=== PATIENT | female | born 1975 | race Caucasian/White ===

== ENCOUNTER 2022-08-12 17:56 | Emergency (ER) | payer OTHER, SELFPAY ==
[2022-08-12 18:02] VITALS: BP 141/96; PULSE 82; RESP 16; TEMP 36.7; O2SAT 98; BMI 37.1
[2022-08-12 18:31] VITALS: BP 141/96; PULSE 82; RESP 16; TEMP 36.7; O2SAT 98; BMI 36.9
--- NOTE | 2022-08-12 18:52 | EXP.UTC ---
Discharge Plan Disposition Patient Disposition: Home, Self-Care Condition: Good Referrals Follow up/Referrals: Huan Brown [Primary Care Provider] - See instructions Activity Restrictions/Add. Instructions Additional Instructions/Restrictions: use over the counter hydrocortisone on ear shell/entrance to relieve itching Clinical Impressions Clinical Impression: Ear abrasion Instructions Patient Instructions: DI for Ear Pain-Adult Discharge ED Provider: Simran Soriano [facility] General Stated complaint: Right ear pain Mode of Arrival: Ambulatory Source of Information: Patient Limitations: No Limitations Time Seen by Provider: 08/12/22 18:40 Description of Symptoms (Recalled from Triage Doc. by RN): ear infection HEENT Symptoms (Recalled from RN notes): Yes Resp Symptoms (Recalled from RN notes): No Skin Symptoms (Recalled from RN notes): No MS Symptoms (Recalled from RN notes): No Functional Status (Recalled from RN notes): n/a History of Present Illness Provider Complaint: Pt relates that she wears hearing aids and her ear has been itchy and sore especially the right ear. Related Data Allergies Allergy/AdvReac Type Severity Reaction Status Date / Time No Known Allergies Allergy Verified 08/12/22 18:34 Worker's Comp Is this a Worker's Comp case?: No [facility] Disclaimer: The information contained in this section may have been updated after the patient was seen, as this information can be updated by other users. Social History Smoking Status: Never smoker alcohol intake: never current occupational status: unemployed Travel in the last 8 weeks: None ROS Obtained: Yes All systems reviewed & no additional complaints except as documented Constitutional Constitutional: Reports system reviewed and no additional complaints, except as documented Eyes Eyes: Reports system reviewed and no additional complaints, except as documented ENT Ears, Nose, Mouth, and Throat: Reports system reviewed and no additional complaints, except as documented and Reports otalgia Cardiovascular Cardiovascular: Reports system reviewed and no additional complaints, except as documented Respiratory Respiratory: Reports system reviewed and no additional complaints, except as documented Gastrointestinal Gastrointestingal: Reports system reviewed and no additional complaints, except as documented Genitourinary Female Genitourinary: Reports system reviewed and no additional complaints, except as documented Musculoskeletal Musculoskeletal: Reports system reviewed and no additional complaints, except as documented Integumentary/Breasts Skin/Breast: Reports system reviewed and no additional complaints, except as documented Neurologic Neurologic: Reports system reviewed and no additional complaints, except as documented Endocrine Endocrine: Reports system reviewed and no additional complaints, except as documented Hematologic/Lymphatic Henatologic/Lymphatic: Reports system reviewed and no additional complaints, except as documented Allergic/Immunologic Allergic/Immunologic: Reports system reviewed and no additional complaints, except as documented Physical Exam General General appearance: alert and in no apparent distress Head Head exam: atraumatic and normocephalic Eye Eye exam: Present normal appearance Expanded ENT Exam External ear exam: Present external tenderness TM/Canal exam: Right TM: erythema and canal tenderness Nasal speculum exam: Bilateral: normal Mouth exam: Present normal external inspection Teeth exam: Present normal inspection Throat exam: Present normal inspection Neck Neck exam: Present normal inspection Chest Chest inspection: Present normal inspection Respiratory Respiratory exam: Present normal lung sounds bilaterally and respiratory distress Cardiovascular Cardiovascular exam: Present regular rate and normal rhythm Abdominal Exam Abdominal exam: Present soft Extremities Exam Extremities exam: Pres
[2022-08-12 19:03] VITALS: BP 147/81; PULSE 70; RESP 16; TEMP 36.7; O2SAT 99
== END 2022-08-12 19:01 | disposition home or self-care (01) ==
PROVIDERS: Emergency Provider Nurse Practitioner Family; PCP Family Medicine
DX: S00.411A Abrasion of right ear, initial encounter (principal)
CPT/HCPCS: 99212; G0463

== ENCOUNTER 2023-01-21 09:40 | Emergency (ER) | payer OTHER, SELFPAY ==
[2023-01-21 10:00] VITALS: BP 131/87; PULSE 84; RESP 18; TEMP 37; O2SAT 98; BMI 38.2
--- NOTE | 2023-01-21 10:17 | EXP.UTC ---
Discharge Plan Disposition Patient Disposition: Home, Self-Care Condition: Good Prescriptions Prescriptions: New amoxicillin 875 mg tablet 875 mg PO Q12H Qty: 20 0RF ciprofloxacin-dexamethasone [Ciprodex] 0.3-0.1 % drops,suspension 4 drp otic (ear) Q12H 7 Days Qty: 7.5 0RF Rx Instructions: in left ear as directed No Action celecoxib [Celebrex] 200 mg Capsule 200 mg PO DAILY Referrals Follow up/Referrals: Huan Brown [Primary Care Provider] - See instructions Activity Restrictions/Add. Instructions Additional Instructions/Restrictions: Take medication as prescribed Use drops in left ear as directed FOllow up with your Family Doctor if no improvement or any worsening of symptoms Return if needed Straight to ER if any life threatening symptoms Clinical Impressions Clinical Impression: Otitis media Qualifiers: Otitis media type: unspecified Laterality: bilateral Qualified Code(s): H66.93 - Otitis media, unspecified, bilateral Otitis externa Qualifiers: Otitis externa type: unspecified type Chronicity: unspecified Laterality: left Qualified Code(s): H60.92 - Unspecified otitis externa, left ear Instructions Patient Instructions: Middle Ear Infection, Ear Infections (Alternative Therapy), Otitis Externa, DI for Otitis Externa Discharge ED Provider: Alva Figueroa [facility] General Stated complaint: bilateral ear pain Mode of Arrival: Ambulatory Source of Information: Patient Limitations: No Limitations Time Seen by Provider: 01/21/23 10:17 Description of Symptoms (Recalled from Triage Doc. by RN): PATIENT C/O BILATERAL EAR PAIN, COUGH AND CONGESTION HEENT Symptoms (Recalled from RN notes): Yes Resp Symptoms (Recalled from RN notes): Yes Skin Symptoms (Recalled from RN notes): No MS Symptoms (Recalled from RN notes): No Functional Status (Recalled from RN notes): WNL History of Present Illness Provider Complaint: Patient states that she has been having bilateral ear pain and cough and congestion for several days that has continued to get worse States that today her left ear was hurting worse and pain was going down into her throat so she came in to get it checked Related Data Home Medications Medication Instructions Recorded Confirmed celecoxib 200 mg capsule (Celebrex) 200 mg PO DAILY BACK AND NECK PAIN 01/21/23 01/21/23 Previous Rx's Medication Instructions Recorded amoxicillin 875 mg tablet 875 mg PO Q12H #20 tabs 01/21/23 ciprofloxacin 0.3 %-dexamethasone 4 drp otic (ear) Q12H 7 days #7.5 01/21/23 0.1 % ear drops,suspension mL (Ciprodex) Allergies Allergy/AdvReac Type Severity Reaction Status Date / Time No Known Allergies Allergy Verified 08/12/22 18:34 Worker's Comp Is this a Worker's Comp case?: No [facility] Disclaimer: The information contained in this section may have been updated after the patient was seen, as this information can be updated by other users. Medical History (Updated 01/21/23 @ 10:24 by Alva Figueroa APRN) Urinary tract infection Surgical History (Updated 01/21/23 @ 10:16 by Alem Bonds RN) History of tympanostomy tube placement Social History (Updated 08/12/22 @ 19:00 by Simran Soriano APRN) Smoking Status: Never smoker alcohol intake: never current occupational status: unemployed Travel in the last 8 weeks: None ROS Obtained: Yes All systems reviewed & no additional complaints except as documented and Yes Systems reviewed as appropriate & no additional complaints except as documented Constitutional Constitutional: Reports system reviewed and no additional complaints, except as documented and Reports as per HPI ENT Ears, Nose, Mouth, and Throat: Reports system reviewed and no additional complaints, except as documented, Reports as per HPI, Reports otalgia and Reports nasal congestion Cardiovascular Cardiovascular: Reports system reviewed and no additional complaints, except as documented and Reports
[2023-01-21 10:26] VITALS: BP 131/87; PULSE 84; RESP 18; TEMP 37; O2SAT 98
== END 2023-01-21 10:29 | disposition home or self-care (01) ==
PROVIDERS: Emergency Provider Nurse Practitioner; PCP Family Medicine
DX: H66.93 Otitis media, unspecified, bilateral (principal); H60.92 Unspecified otitis externa, left ear
CPT/HCPCS: 99212; 99214; G0463

== ENCOUNTER 2023-08-12 09:23 | Emergency (ER) | payer OTHER, SELFPAY ==
[2023-08-12 09:30] VITALS: BP 147/86; PULSE 88; RESP 18; TEMP 36.7; O2SAT 96; BMI 34.3
--- NOTE | 2023-08-12 09:41 | EXP.UTC ---
Discharge Plan Disposition Patient Disposition: Home, Self-Care Condition: Good Prescriptions Prescriptions: New azithromycin [Zithromax] 250 mg tablet 250 mg PO UD DOSE PK Qty: 6 0RF Rx Instructions: Take two (2) tablets today, then one (1) tablet days #2 thru #5 benzonatate [benzonatate] 100 mg capsule 100 mg PO TIDP PRN (Reason: Cough) Qty: 30 0RF methylprednisolone 4 mg Tablets,Dose Pack 4 mg PO DIRECTED 6 Days Qty: 21 0RF Rx Instructions: Take 1 pack as directed for 6 days No Action celecoxib [Celebrex] 200 mg Capsule 200 mg PO DAILY Referrals Follow up/Referrals: Huan Brown [Primary Care Provider] - See instructions Activity Restrictions/Add. Instructions Additional Instructions/Restrictions: Drink plenty of fluids. Take tylenol or ibuprofen for pain or fever. Take the medications as directed. Follow up with your regular doctor. GO TO THE ER FOR ANY WORSENING SYMPTOMS Clinical Impressions Clinical Impression: Pharyngitis, Otitis media Instructions Patient Instructions: DI for Pharyngitis/Tonsillopharyngitis -- Adult Discharge ED Provider: Jp Vidal [facility] General Stated complaint: Sore throat, body aches, loss of voice, cough Time Seen by Provider: 08/12/23 09:41 History of Present Illness Provider Complaint: She states that for the past 2 days she has had sore throat, fever, ear pain, and hoarse voice. Related Data Home Medications Medication Instructions Recorded Confirmed celecoxib 200 mg capsule (Celebrex) 200 mg PO DAILY BACK AND NECK PAIN 01/21/23 08/12/23 Previous Rx's Medication Instructions Recorded azithromycin 250 mg tablet 250 mg PO UD DOSE PK #6 tabs 08/12/23 (Zithromax) benzonatate 100 mg capsule 100 mg PO TIDP PRN Cough #30 caps 08/12/23 methylprednisolone 4 mg tablets in 4 mg PO DIRECTED 6 days #21 tabs 08/12/23 a dose pack Allergies Allergy/AdvReac Type Severity Reaction Status Date / Time No Known Allergies Allergy Verified 08/12/23 09:42 [facility] Disclaimer: The information contained in this section may have been updated after the patient was seen, as this information can be updated by other users. Medical History (Updated 08/12/23 @ 10:22 by Jp Vidal APRN) Urinary tract infection Surgical History (Updated 01/21/23 @ 10:16 by Alem Bonds RN) History of tympanostomy tube placement Social History (Updated 08/12/22 @ 19:00 by Simran Soriano APRN) Smoking Status: Never smoker alcohol intake: never current occupational status: unemployed Travel in the last 8 weeks: None ROS Obtained: Yes All systems reviewed & no additional complaints except as documented Constitutional Constitutional: Reports chills and Reports fever(s) Eyes Eyes: Denies eye discharge ENT Ears, Nose, Mouth, and Throat: Reports as per HPI Cardiovascular Cardiovascular: Denies chest pain Respiratory Respiratory: Denies chest congestion and Reports cough Gastrointestinal Gastrointestingal: Reports nausea; Denies abdominal pain, constipation, cramping, diarrhea or vomiting Musculoskeletal Musculoskeletal: Denies arthralgias Integumentary/Breasts Skin/Breast: Denies rash Neurologic Neurologic: Denies paresthesias Physical Exam General General appearance: alert and in no apparent distress Eye Eye exam: Present normal appearance, PERRL and EOMI ENT ENT exam: Present mucous membranes moist and normal external ear exam Expanded ENT Exam External ear exam: Present normal external inspection TM/Canal exam: Bilateral TM: erythema and bulging Nose exam: Absent sinus tenderness Nasal speculum exam: Bilateral: normal Mouth exam: Present normal external inspection; Absent drooling Teeth exam: Present normal inspection Throat exam: Present tonsillar erythema and tonsillomegaly Neck Neck exam: Present normal inspection, full ROM and trachea midline; Absent tenderness, lymphadenopathy or thyromegaly Chest Chest inspection: Present normal inspection and symmetric chest wall rise; Absent tenderness or rash Respiratory Respiratory exam: Present normal lung sounds bilaterally; Absent respiratory distress, wheezes, stridor or accessory muscle use Cardiovascular Cardiovascular exam: Present regular rate, normal rhythm and normal heart sounds Abdominal Exam Abdominal exam: Present soft; Absent distention, tenderness, guarding, rebound or rigidity Extremities Exam Extremities exam: Present normal inspection, full ROM and normal capillary refill; Absent tenderness or calf tenderness Back Exam Back exam: Present normal inspection and full ROM; Absent tenderness Neurological Exam Neurological exam: Present alert and oriented X3 Psychiatric Psychiatric exam: Present normal affect and normal mood Skin Skin exam: Present warm, dry, intact and normal color Lymphatic Lymphatic Findings: no adenopathy Medical Decision Making Medical Records Medical records reviewed: No I reviewed the patient's medical records. Nick Peters Pt receiving controlled substance: No Lab Data Lab results reviewed: Yes I reviewed the patient's lab results.
[2023-08-12 10:05] LABS: UTC Influenza A Antigen Negative (Negative); UTC Influenza B Antigen Negative (Negative); UTC Strep Screen (Rapid) Negative (Negative)
[2023-08-12 10:31] VITALS: BP 147/86; PULSE 88; RESP 18; TEMP 36.7; O2SAT 96
== END 2023-08-12 10:31 | disposition home or self-care (01) ==
PROVIDERS: Emergency Provider Nurse Practitioner Family; PCP Family Medicine
DX: J02.9 Acute pharyngitis, unspecified (principal); H66.93 Otitis media, unspecified, bilateral; R50.9 Fever, unspecified
CPT/HCPCS: 87804; 87880; 99212; 99214; G0463

== ENCOUNTER 2023-10-07 16:11 | Emergency (ER) | payer OTHER, SELFPAY ==
[2023-10-07 16:40] VITALS: BP 140/64; PULSE 85; RESP 18; TEMP 36.7; O2SAT 97; BMI 34.4
--- NOTE | 2023-10-07 17:05 | ED_ITS ---
Discharge Plan Disposition Patient Disposition: Home, Self-Care Condition: Good Prescriptions Prescriptions: New amoxicillin 875 mg tablet 875 mg PO Q12H Qty: 20 0RF methylprednisolone 4 mg Tablets,Dose Pack 4 mg PO DIRECTED 6 Days Qty: 21 0RF Rx Instructions: Take 1 pack as directed for 6 days No Action celecoxib [Celebrex] 200 mg Capsule 200 mg PO DAILY venlafaxine 75 mg capsule,extended release 24hr 75 mg PO DAILY Referrals Follow up/Referrals: Huan Brown [Primary Care Provider] - See instructions Richardson Silver DO [Staff Physician] - See instructions Activity Restrictions/Add. Instructions Additional Instructions/Restrictions: Drink plenty of fluids. Take tylenol or ibuprofen for pain or fever. Take the medications as directed. Follow up with your regular doctor. GO TO THE ER FOR ANY WORSENING SYMPTOMS Throw your tooth brush away and get a new one. Quarantine until you know the results of your covid-19 test. Notify your school or workplace of your results and follow their instructions regarding return to work/school. Rest the extremity, Wear the lia wrap for compression, Elevate the extremity as tolerated while you are resting. Follow up with Dr. Silver (orthopedics). Sometimes there can be fractures that don't show up well on the first set of x-rays. So, you should follow up if you continue to have symptoms. I put in a referral but you need to call his office and schedule an appointment. Clinical Impressions Clinical Impression: Otitis media, Left knee pain Instructions Patient Instructions: DI for Knee Pain, Middle Ear Infection, Methylprednisolone, Amoxicillin Discharge ED Provider: Jp V[facility] General Stated complaint: LT knee swelling , painful, ear ache Mode of Arrival: Ambulatory Source of Information: Patient Limitations: No Limitations Time Seen by Provider: 10/07/23 17:04 Description of Symptoms (Recalled from Triage Doc. by RN): Pt's symptoms are left ear pain, and left knee pain, popping, and swelling. HEENT Symptoms (Recalled from RN notes): Yes Resp Symptoms (Recalled from RN notes): No Skin Symptoms (Recalled from RN notes): No MS Symptoms (Recalled from RN notes): Yes Functional Status (Recalled from RN notes): n/a History of Present Illness Provider Complaint: She states that for the past 3 days she has had left ear pain. She has had sinus congestion and a scratchy throat also. Also, for the past 2 weeks she has had left knee pain and swelling. She denies any injury. Related Data Home Medications Medication Instructions Recorded Confirmed celecoxib 200 mg capsule (Celebrex) 200 mg PO DAILY BACK AND NECK PAIN 01/21/23 10/07/23 venlafaxine 75 mg capsule,extended 75 mg PO DAILY 10/07/23 10/07/23 release 24 hr Previous Rx's Medication Instructions Recorded amoxicillin 875 mg tablet 875 mg PO Q12H #20 tabs 10/07/23 methylprednisolone 4 mg tablets in 4 mg PO DIRECTED 6 days #21 tabs 10/07/23 a dose pack Allergies Allergy/AdvReac Type Severity Reaction Status Date / Time No Known Allergies Allergy Verified 10/07/23 17:03 Worker's Comp Is this a Worker's Comp case?: No [facility] Disclaimer: The information contained in this section may have been updated after the patient was seen, as this information can be updated by other users. Medical History (Updated 10/07/23 @ 17:40 by Jp Vidal APRN) Urinary tract infection Surgical History History of tympanostomy tube placement Social History Smoking Status: Never smoker alcohol intake: never current occupational status: unemployed Travel in the last 8 weeks: None ROS Obtained: Yes All systems reviewed & no additional complaints except as documented Constitutional Constitutional: Denies chills, Reports fever(s) and Reports poor appetite Eyes Eyes: Denies eye discharge ENT Ears, Nose, Mouth, and Throat: Denies ear discharge, Reports otalgia, Denies hearing loss, Denies sinus pain and Reports sore throat Cardiovascular Cardiovascular: Denies chest pain and Denies dyspnea Respiratory Respiratory: Denies chest congestion, Reports cough and Denies dyspnea Gastrointestinal Gastrointestingal: Denies abdominal pain, diarrhea, nausea or vomiting Musculoskeletal Musculoskeletal: Reports as per HPI Integumentary/Breasts Skin/Breast: Denies rash Physical Exam General General appearance: alert and in no apparent distress Head Head exam: atraumatic, normocephalic and normal inspection Eye Eye exam: Present normal appearance; Absent PERRL or EOMI ENT ENT exam: Present mucous membranes moist and normal external ear exam Expanded ENT Exam TM/Canal exam: Bilateral TM: erythema, bulging and effusion Nose exam: Absent sinus tenderness Nasal speculum exam: Bilateral: normal Mouth exam: Present normal external inspection and other; Absent drooling Teeth exam: Present normal inspection Throat exam: Present tonsillar erythema and tonsillomegaly Neck Neck exam: Present normal inspection, full ROM and trachea midline; Absent tenderness, meningismus or lymphadenopathy Chest Chest inspection: Present normal inspection and symmetric chest wall rise; Absent tenderness Respiratory Respiratory exam: Present normal lung sounds bilaterally; Absent respiratory distress, wheezes or stridor Cardiovascular Cardiovascular exam: Present regular rate, normal rhythm and normal heart sounds; Absent tachycardia or irregular rhythm Abdominal Exam Abdominal exam: Present soft and normal bowel sounds; Absent distention, tenderness, guarding, rebound or rigidity Extremities Exam Extremities exam: Present normal capillary refill; Absent joint swelling or calf tenderness Expanded Lower Extremity Exam Left: Hip/Pelvis exam: Present normal inspection and full ROM; Absent tenderness Upper leg exam: Present normal inspection and full ROM; Absent tenderness Knee exam: Present full ROM, tenderness and knee extension intact; Absent swelling, abrasion, laceration, ecchymosis, deformity, crepitus, dislocation, erythema, effusion, anterior drawer sign, posterior draw sign, pain with valgus, laxity with valgus, pain with varus or laxity with varus Lower leg exam: Present normal inspection, full ROM and Achilles tendon intact; Absent tenderness or Homans' sign Ankle exam: Present normal inspection and full ROM; Absent tenderness Foot/toe exam: Present normal inspection and full ROM; Absent tenderness Neurovascular/Tendon exam: Present normal capillary refill and pulse deficit; Absent motor deficit Gait: observed and normal Back Exam Back exam: Present normal inspection and full ROM; Absent tenderness, CVA tenderness (R) or CVA tenderness (L) Neurological Exam Neurological exam: Present alert, oriented X3, CN II-XII intact, normal gait and reflexes normal; Absent motor sensory deficit Psychiatric Psychiatric exam: Present normal affect and normal mood Skin Skin exam: Present warm, dry, intact and normal color Lymphatic Lymphatic Findings: no adenopathy Medical Decision Making Nick Inquiry Pt receiving controlled substance: No Vital Signs: 10/07/23 16:40 Temperature 98.0 F Temperature Source Oral Pulse Rate [Right Radial] 85 Respiratory Rate 18 Blood Pressure [Right Arm] 140/64 Blood Pressure Mean [Right Arm] 89 Blood Pressure Source [Right Arm] Automatic Cuff Blood Pressure Position [Right Arm] Sitting 02 Sat by Pulse Oximetry 97 Oxygen Delivery Method Room Air
[2023-10-07 17:48] VITALS: BP 140/64; PULSE 85; RESP 18; TEMP 36.7; O2SAT 97
== END 2023-10-07 17:48 | disposition home or self-care (01) ==
PROVIDERS: Emergency Provider Nurse Practitioner Family; PCP Family Medicine
DX: H66.93 Otitis media, unspecified, bilateral (principal); M25.562 Pain in left knee; R07.0 Pain in throat; R09.81 Nasal congestion
CPT/HCPCS: 99212; 99214; G0463

== ENCOUNTER 2023-10-23 12:05 | Outpatient (CLI) | payer OTHER, SELFPAY ==
--- NOTE | 2023-10-23 12:08 | XR_ITS ---
FINAL REPORT CLINICAL HISTORY: lt knee pain FINDINGS: Left knee Three views were obtained. There is no acute fracture or dislocation. There are minimal degenerative changes. Small joint effusion is identified. IMPRESSION: Small joint effusion. Reviewed, Interpreted and Dictated by Nicholas Morgan III, MD Transcribed by Monalisa Tapia Authenticated and [facility]
== END 2023-10-23 23:59 | disposition home or self-care (01) ==
LOC: RAD 12:06
PROVIDERS: PCP Family Medicine; Visit Provider Orthopaedic Surgery
DX: M25.562 Pain in left knee (principal)
CPT/HCPCS: 73562

== ENCOUNTER 2023-11-04 17:07 | Emergency (ER) | payer OTHER, SELFPAY ==
[2023-11-04 17:25] VITALS: BP 134/93; PULSE 117; RESP 20; TEMP 36.8; O2SAT 95; BMI 33.9
--- NOTE | 2023-11-04 17:31 | EXP.UTC ---
Discharge Plan Disposition Patient Disposition: Home, Self-Care Condition: Good Prescriptions Prescriptions: New yxohhaot-izpzoylpe-RF 3.5-10,000-1 mg/mL-unit/mL-% solution 4 drp Ear-Left Q8H 7 Days Qty: 10 0RF amoxicillin 875 mg tablet 875 mg PO Q12H Qty: 20 0RF No Action celecoxib [Celebrex] 200 mg Capsule 200 mg PO DAILY venlafaxine 75 mg capsule,extended release 24hr 75 mg PO DAILY Referrals Follow up/Referrals: Huan Brown [Primary Care Provider] - See instructions Activity Restrictions/Add. Instructions Additional Instructions/Restrictions: Drink plenty of fluids. Take tylenol or ibuprofen for pain or fever. Take the medications as directed. Follow up with your regular doctor. GO TO THE ER FOR ANY WORSENING SYMPTOMS Clinical Impressions Clinical Impression: Otitis media Instructions Patient Instructions: How to Instill Ear Drops, Middle Ear Infection Discharge ED Provider: Jp Vidal [facility] General Stated complaint: LT ear pain Time Seen by Provider: 11/04/23 17:29 Related Data Home Medications Medication Instructions Recorded Confirmed celecoxib 200 mg capsule (Celebrex) 200 mg PO DAILY BACK AND NECK PAIN 01/21/23 11/04/23 venlafaxine 75 mg capsule,extended 75 mg PO DAILY 10/07/23 11/04/23 release 24 hr Previous Rx's Medication Instructions Recorded amoxicillin 875 mg tablet 875 mg PO Q12H #20 tabs 11/04/23 ennzquyh-mnnutflvk-tkpgrizpy 3.5 4 drp Ear-Left Q8H 7 days #10 mL 11/04/23 mg/mL-10,000 unit/mL-1 % ear solution Allergies Allergy/AdvReac Type Severity Reaction Status Date / Time No Known Allergies Allergy Verified 10/23/23 14:03 [facility] Disclaimer: The information contained in this section may have been updated after the patient was seen, as this information can be updated by other users. Medical History (Updated 11/04/23 @ 18:24 by Jp Vidal APRN) Depression Anxiety Urinary tract infection Surgical History History of tympanostomy tube placement Social History Smoking Status: Never smoker alcohol intake: never current occupational status: unemployed Travel in the last 8 weeks: None ROS Obtained: Yes All systems reviewed & no additional complaints except as documented Constitutional Constitutional: Denies chills and Denies fever(s) Eyes Eyes: Denies eye discharge ENT Ears, Nose, Mouth, and Throat: Denies ear discharge, Reports otalgia, Denies hearing loss, Denies sinus pain and Reports sore throat Cardiovascular Cardiovascular: Denies chest pain and Denies dyspnea Respiratory Respiratory: Denies chest congestion, Reports cough and Denies dyspnea Gastrointestinal Gastrointestingal: Denies abdominal pain, diarrhea, nausea or vomiting Musculoskeletal Musculoskeletal: Denies arthralgias Integumentary/Breasts Skin/Breast: Denies rash Physical Exam General General appearance: alert and in no apparent distress Head Head exam: atraumatic, normocephalic and normal inspection Eye Eye exam: Present normal appearance; Absent PERRL or EOMI ENT ENT exam: Present mucous membranes moist and normal external ear exam Expanded ENT Exam TM/Canal exam: Bilateral TM: erythema, bulging and effusion Nose exam: Absent sinus tenderness Nasal speculum exam: Bilateral: normal Mouth exam: Present normal external inspection and other; Absent drooling Teeth exam: Present normal inspection Throat exam: Present tonsillar erythema and tonsillomegaly Neck Neck exam: Present normal inspection, full ROM and trachea midline; Absent tenderness, meningismus or lymphadenopathy Chest Chest inspection: Present normal inspection and symmetric chest wall rise; Absent tenderness Respiratory Respiratory exam: Present normal lung sounds bilaterally; Absent respiratory distress, wheezes or stridor Cardiovascular Cardiovascular exam: Present regular rate, normal rhythm and normal heart sounds; Absent tachycardia or irregular rhythm Abdominal Exam Abdominal exam: Present soft and normal bowel sounds; Absent distention, tenderness, guarding, rebound or rigidity Extremities Exam Extremities exam: Present normal inspection and normal capillary refill; Absent tenderness, joint swelling or calf tenderness Back Exam Back exam: Present normal inspection and full ROM; Absent tenderness, CVA tenderness (R) or CVA tenderness (L) Neurological Exam Neurological exam: Present alert, oriented X3, CN II-XII intact, normal gait and reflexes normal; Absent motor sensory deficit Psychiatric Psychiatric exam: Present normal affect and normal mood Skin Skin exam: Present warm, dry, intact and normal color Lymphatic Lymphatic Findings: no adenopathy Medical Decision Making Medical Records Medical records reviewed: No I reviewed the patient's medical records. Nick Inquiry Pt receiving controlled substance: No
[2023-11-04 18:24] VITALS: BP 134/93; PULSE 117; RESP 20; TEMP 36.8; O2SAT 95
== END 2023-11-04 18:33 | disposition home or self-care (01) ==
PROVIDERS: Emergency Provider Nurse Practitioner Family; PCP Family Medicine
DX: H66.92 Otitis media, unspecified, left ear (principal); H92.02 Otalgia, left ear
CPT/HCPCS: 99212; 99214; G0463

== ENCOUNTER 2023-11-17 18:33 | Emergency (ER) | payer OTHER, SELFPAY ==
[2023-11-17 18:40] VITALS: BP 163/95; PULSE 99; RESP 18; TEMP 36.6; O2SAT 97; BMI 33.4
--- NOTE | 2023-11-17 19:18 | ED_ITS ---
Discharge Plan Disposition Patient Disposition: Home, Self-Care Condition: Good Prescriptions Prescriptions: New ciprofloxacin-dexamethasone 0.3-0.1 % Drops,Suspension 2 drp OTIC (EAR) BID 7 Days Qty: 1 0RF No Action celecoxib [Celebrex] 200 mg Capsule 200 mg PO DAILY venlafaxine 75 mg capsule,extended release 24hr 75 mg PO DAILY ndpuvywy-xwmvoyvvh-WT 3.5-10,000-1 mg/mL-unit/mL-% solution 4 drp Ear-Left Q8H 7 Days Qty: 10 0RF amoxicillin 875 mg tablet 875 mg PO Q12H Qty: 20 0RF Referrals Follow up/Referrals: Marco Antonio Prince MD [Physician] - See instructions Huan Brown [Primary Care Provider] - See instructions Activity Restrictions/Add. Instructions Additional Instructions/Restrictions: Take tylenol or ibuprofen for pain or fever. Use the ear drops as directed. Follow up with your regular doctor. Follow up with ENT. I put in a referral to Dr. Prince. His office phone number will be on this paperwork. GO TO THE ER FOR ANY WORSENING SYMPTOMS Clinical Impressions Clinical Impression: Perforated left tympanic membrane on examination Instructions Patient Instructions: How to Instill Ear Drops, Ruptured Eardrum Discharge ED Provider: Jp Vidal [facility] General Stated complaint: LT ear bleeding Mode of Arrival: Ambulatory Source of Information: Patient Limitations: No Limitations Time Seen by Provider: 11/17/23 19:16 Description of Symptoms (Recalled from Triage Doc. by RN): Pt's symptoms are left ear pain and bleeding. HEENT Symptoms (Recalled from RN notes): Yes Resp Symptoms (Recalled from RN notes): No Skin Symptoms (Recalled from RN notes): No MS Symptoms (Recalled from RN notes): No Functional Status (Recalled from RN notes): n/a Related Data Home Medications Medication Instructions Recorded Confirmed celecoxib 200 mg capsule (Celebrex) 200 mg PO DAILY BACK AND NECK PAIN 01/21/23 11/17/23 venlafaxine 75 mg capsule,extended 75 mg PO DAILY 10/07/23 11/17/23 release 24 hr Previous Rx's Medication Instructions Recorded amoxicillin 875 mg tablet 875 mg PO Q12H #20 tabs 11/04/23 uqdvbncf-tlupewjnm-wacthaxsh 3.5 4 drp Ear-Left Q8H 7 days #10 mL 11/04/23 mg/mL-10,000 unit/mL-1 % ear solution ciprofloxacin 0.3 %-dexamethasone 2 drp otic (ear) BID 7 days #1 ea 11/17/23 0.1 % ear drops,suspension Allergies Allergy/AdvReac Type Severity Reaction Status Date / Time No Known Allergies Allergy Verified 11/17/23 18:53 Worker's Comp Is this a Worker's Comp case?: No [facility] Disclaimer: The information contained in this section may have been updated after the patient was seen, as this information can be updated by other users. Medical History (Updated 11/17/23 @ 19:45 by Jp Vidal APRN) Depression Anxiety Urinary tract infection Surgical History History of tympanostomy tube placement Social History Smoking Status: Never smoker alcohol intake: never current occupational status: unemployed Travel in the last 8 weeks: None ROS Obtained: Yes All systems reviewed & no additional complaints except as documented Constitutional Constitutional: Denies chills and Denies fever(s) Eyes Eyes: Denies eye discharge ENT Ears, Nose, Mouth, and Throat: Denies dizziness, Denies otalgia and Denies sore throat Cardiovascular Cardiovascular: Denies chest pain Respiratory Respiratory: Denies shortness of breath, Denies chest congestion, Denies cough, Denies stridor and Denies wheezing Gastrointestinal Gastrointestingal: Denies nausea or vomiting Musculoskeletal Musculoskeletal: Reports system reviewed and no additional complaints, except as documented and Denies arthralgias Integumentary/Breasts Skin/Breast: Denies rash Neurologic Neurologic: Denies dizziness and Denies paresthesias Allergic/Immunologic Allergic/Immunologic: Denies wheezing Physical Exam General General appearance: alert and in no apparent distress Head Head exam: atraumatic, normocephalic and normal inspection Eye Eye exam: Present normal appearance, PERRL and EOMI ENT ENT exam: Present normal exam, normal oropharynx, mucous membranes moist, TM's normal bilaterally and normal external ear exam Neck Neck exam: Present normal inspection, full ROM and trachea midline; Absent meningismus or lymphadenopathy Chest Chest inspection: Present normal inspection and symmetric chest wall rise; Absent tenderness Respiratory Respiratory exam: Present normal lung sounds bilaterally; Absent respiratory distress Cardiovascular Cardiovascular exam: Present regular rate and normal rhythm; Absent JVD Abdominal Exam Abdominal exam: Present soft and normal bowel sounds; Absent distention, tenderness or guarding Extremities Exam Extremities exam: Present normal inspection, full ROM and normal capillary refill; Absent calf tenderness Back Exam Back exam: Present normal inspection; Absent tenderness Neurological Exam Neurological exam: Present alert and oriented X3 Psychiatric Psychiatric exam: Present normal affect and normal mood Skin Skin exam: Present warm, dry, intact and normal color Lymphatic Lymphatic Findings: no adenopathy Medical Decision Making Medical Records Medical records reviewed: No I reviewed the patient's medical records. Nick Inquiry Pt receiving controlled substance: No Vital Signs: 11/17/23 18:40 Temperature 97.9 F Temperature Source Oral Pulse Rate [Right Radial] 99 H Respiratory Rate 18 Blood Pressure [Right Arm] 163/95 H Blood Pressure Mean [Right Arm] 117 Blood Pressure Source [Right Arm] Automatic Cuff Blood Pressure Position [Right Arm] Sitting 02 Sat by Pulse Oximetry 97 Oxygen Delivery Method Room Air
[2023-11-17 20:23] VITALS: BP 163/95; PULSE 99; RESP 18; TEMP 36.6; O2SAT 97
== END 2023-11-17 20:22 | disposition home or self-care (01) ==
PROVIDERS: Emergency Provider Nurse Practitioner Family; PCP Family Medicine
DX: H72.92 Unspecified perforation of tympanic membrane, left ear (principal); H92.02 Otalgia, left ear
CPT/HCPCS: 99212; 99214; G0463

== ENCOUNTER 2023-12-06 11:43 | Emergency (ER) | payer OTHER, SELFPAY ==
[2023-12-06 11:55] VITALS: BP 140/89; PULSE 88; RESP 20; TEMP 36.9; O2SAT 97; BMI 35.5
--- NOTE | 2023-12-06 11:59 | EXP.UTC ---
Discharge Plan Disposition Patient Disposition: Home, Self-Care Condition: Good Prescriptions Prescriptions: No Action amoxicillin 500 mg capsule 500 mg PO BID 10 Days Qty: 20 0RF methylprednisolone 4 mg tablets,dose pack See Rx Instructions PO PER PKG DIR Qty: 21 0RF Rx Instructions: PO PER PKG DIR celecoxib [Celebrex] 200 mg Capsule 200 mg PO DAILY venlafaxine 75 mg capsule,extended release 24hr 75 mg PO DAILY Referrals Follow up/Referrals: Richardson Silver DO [Staff Physician] - See instructions Huan Brown [Primary Care Provider] - See instructions Activity Restrictions/Add. Instructions Additional Instructions/Restrictions: Rest the extremity, Elevate the extremity as tolerated while you are resting. Take ibuprofen for pain (if you can take this). Follow up with Dr. Silver (orthopedics). I put in a referral but you need to call his office and schedule an appointment. Follow up with your regular doctor. GO TO THE ER FOR ANY WORSENING SYMPTOMS Clinical Impressions Clinical Impression: Left knee sprain, Left knee pain Instructions Patient Instructions: Knee Sprain, DI for Knee Sprain, How to Use a Knee Immobilizer Discharge ED Provider: Jp Vidal [facility] General Stated complaint: twisted her knee has pain Time Seen by Provider: 12/06/23 11:59 History of Present Illness Provider Complaint: She states that she twisted her left knee 2 days ago while picking up her grand child. She has had left knee pain that is worse with walking since then. She denies any other injury. Related Data Home Medications Medication Instructions Recorded Confirmed celecoxib 200 mg capsule (Celebrex) 200 mg PO DAILY BACK AND NECK PAIN 01/21/23 12/06/23 venlafaxine 75 mg capsule,extended 75 mg PO DAILY 10/07/23 12/06/23 release 24 hr Previous Rx's Medication Instructions Recorded amoxicillin 500 mg capsule 500 mg PO BID 10 days #20 caps 12/06/23 methylprednisolone 4 mg tablets in See Rx Instructions PO PER PKG DIR 12/06/23 a dose pack #21 tabs Allergies Allergy/AdvReac Type Severity Reaction Status Date / Time No Known Allergies Allergy Verified 12/06/23 14:10 [facility] Disclaimer: The information contained in this section may have been updated after the patient was seen, as this information can be updated by other users. Medical History (Updated 12/06/23 @ 14:29 by Celia Stein APRN) Acute left otitis media Depression Anxiety Urinary tract infection Surgical History History of tympanostomy tube placement Social History Smoking Status: Never smoker alcohol intake: never current occupational status: unemployed Travel in the last 8 weeks: None ROS Obtained: Yes All systems reviewed & no additional complaints except as documented Constitutional Constitutional: Denies chills and Denies fever(s) Eyes Eyes: Denies eye discharge ENT Ears, Nose, Mouth, and Throat: Denies dizziness, Denies otalgia and Denies sore throat Cardiovascular Cardiovascular: Denies chest pain Respiratory Respiratory: Denies shortness of breath, Denies chest congestion, Denies cough, Denies stridor and Denies wheezing Gastrointestinal Gastrointestingal: Denies nausea or vomiting Musculoskeletal Musculoskeletal: Reports system reviewed and no additional complaints, except as documented and Denies arthralgias Integumentary/Breasts Skin/Breast: Denies rash Neurologic Neurologic: Denies dizziness and Denies paresthesias Allergic/Immunologic Allergic/Immunologic: Denies wheezing Physical Exam General General appearance: alert and in no apparent distress Head Head exam: atraumatic, normocephalic and normal inspection Eye Eye exam: Present normal appearance, PERRL and EOMI ENT ENT exam: Present normal exam, normal oropharynx, mucous membranes moist, TM's normal bilaterally and normal external ear exam Neck Neck exam: Present normal inspection, full ROM and trachea midline; Absent meningismus or lymphadenopathy Chest Chest inspection: Present normal inspection and symmetric chest wall rise; Absent tenderness Respiratory Respiratory exam: Present normal lung sounds bilaterally; Absent respiratory distress Cardiovascular Cardiovascular exam: Present regular rate and normal rhythm; Absent JVD Abdominal Exam Abdominal exam: Present soft and normal bowel sounds; Absent distention, tenderness or guarding Extremities Exam Extremities exam: Present normal capillary refill; Absent calf tenderness Expanded Lower Extremity Exam Left: Hip/Pelvis exam: Present normal inspection and full ROM; Absent tenderness Upper leg exam: Present normal inspection and full ROM; Absent tenderness, swelling, abrasion, laceration, ecchymosis, deformity, crepitus, dislocation or erythema Knee exam: Present full ROM, tenderness and knee extension intact; Absent swelling, abrasion, laceration, ecchymosis, deformity, crepitus, dislocation, erythema, effusion, anterior drawer sign, posterior draw sign, pain with valgus, laxity with valgus, pain with varus or laxity with varus Lower leg exam: Present normal inspection, full ROM and Achilles tendon intact; Absent tenderness or Homans' sign Ankle exam: Present normal inspection and full ROM; Absent tenderness Foot/toe exam: Present normal inspection and full ROM; Absent tenderness Neurovascular/Tendon exam: Present normal capillary refill, normal 2-point discrimination and normal fine/light touch; Absent pulse deficit, motor deficit, sensory deficit, tendon deficit, extremity cold to touch or pallor Gait: observed and normal Back Exam Back exam: Present normal inspection; Absent tenderness Neurological Exam Neurological exam: Present alert and oriented X3 Psychiatric Psychiatric exam: Present normal affect and normal mood Skin Skin exam: Present warm, dry, intact and normal color Lymphatic Lymphatic Findings: no adenopathy Medical Decision Making Medical Records Medical records reviewed: No I reviewed the patient's medical records. Nick Inquiry Pt receiving controlled substance: No
--- NOTE | 2023-12-06 12:01 | XR_ITS ---
FINAL REPORT CLINICAL HISTORY: pain FINDINGS: LEFT KNEE 3 views of the left knee were obtained. There is no acute fracture or dislocation. There are mild degenerative changes. Visualized joint spaces are normally aligned. Soft tissues are unremarkable. IMPRESSION: No acute bony abnormality. Reviewed, Interpreted and Dictated by Jeanette Torres MD Transcribed by Eloisa Streeter Authenticated and [facility]
[2023-12-06 13:02] VITALS: BP 140/89; PULSE 88; RESP 20; TEMP 36.9; O2SAT 97
== END 2023-12-06 13:09 | disposition home or self-care (01) ==
PROVIDERS: Emergency Provider Nurse Practitioner Family; PCP Family Medicine
DX: S83.92XA Sprain of unspecified site of left knee, initial encounter (principal); M25.562 Pain in left knee; X50.1XXA Overexertion from prolonged static or awkward postures, initial encounter
CPT/HCPCS: 73562; 99212; 99213; G0463

== ENCOUNTER 2024-01-07 13:39 | Outpatient (CLI) | payer OTHER, SELFPAY | END 2024-01-07 23:59 | disposition home or self-care (01) | LOC: LAB.DROPOF 01-09 13:40 | PROVIDERS: PCP Family Medicine; Visit Provider Nurse Practitioner | DX: H66.92 Otitis media, unspecified, left ear (principal); Z72.0 Tobacco use | CPT/HCPCS: 87070; 87077; 87186 ==

== ENCOUNTER 2024-05-14 10:32 | Emergency (ER) | payer OTHER, SELFPAY ==
[2024-05-14 10:45] VITALS: BP 139/89; PULSE 101; RESP 19; TEMP 36.8; O2SAT 98; BMI 37.8
--- NOTE | 2024-05-14 10:56 | EXP.UTC ---
Discharge Plan Disposition Patient Disposition: Home, Self-Care Condition: Good Prescriptions Prescriptions: New promethazine-DM 6.25-15 mg/5 mL syrup 5 ml PO Q6H PRN (Reason: cough) Qty: 118 0RF methylprednisolone [Medrol (Edison)] 4 mg tablets,dose pack See Rx Instructions .Route .COMPLEX 6 Days Qty: 21 0RF Rx Instructions: taper pack; guaifenesin [Mucinex] 600 mg tablet extended release 12hr 1,200 mg PO BID PRN (Reason: cough) Qty: 20 0RF albuterol sulfate 90 mcg/actuation HFA aerosol inhaler 2 puff inhalation Q6H PRN (Reason: shortness of breath or wheezing) Qty: 8.5 0RF azithromycin [Zithromax Z-Edison] 250 mg tablet See Rx Instructions .ROUTE .COMPLEX 5 Days Qty: 6 0RF Rx Instructions: For 250 mg dose pack: take 500 mg today (day 1), then 250 mg for 4 days (days 2-5) No Action ibuprofen 800 mg Tablet 800 mg PO Q8H PRN (Reason: Pain) methocarbamol 750 mg Tablet 750 mg PO HS venlafaxine 75 mg capsule,extended release 24hr 75 mg PO DAILY Referrals Follow up/Referrals: Bhavya Melendrez MD [Primary Care Provider] - See instructions Activity Restrictions/Add. Instructions Additional Instructions/Restrictions: Start antibiotic today. Be sure to complete entire prescription even if feeling better Monitor temp. Tylenol every 4 hours as needed and / or ibuprofen every 6 hours as needed ( As long as your primary care physician has told you that it ok to take both. For fever/aches/pains ER if no less than 101 despite Tylenol or Motrin Humidifier/vaporizer or hot steamy shower Inhaler every 4-6 hours as needed like we discussed. If unsure how to use it, ask pharmacist to demonstrate how. Should help open airways and improve cough, wheezing, and shortness of breath Mucinex during the day for your cough and cough suppressant only at night. Be sure to drink lots of water. *Promethazine DM cough syrup will cause drowsiness. Use only at night. No driving, operating machinery or caring for small children after taking it Start steroid today. Helps with inflammation therefore, cough and wheezing. Follow directions on the package. Reviewed side effects. Patient reports taking them before. Follow up IMMEDIATELY for new or worsening of symptoms OR no noticeable improvement over the next 48-72 hours. 911 immediately for any life threatening symptoms such as chest pain or difficulty breathing Clinical Impressions Clinical Impression: Bronchitis Sinusitis Qualifiers: Sinusitis location: unspecified location Chronicity: unspecified Qualified Code(s): J32.9 - Chronic sinusitis, unspecified Instructions Patient Instructions: Acute Bronchitis, DI for Sinusitis Print Language Print Language: Turkmen Discharge ED Provider: Alva Figueroa [facility] General Stated complaint: chest congestion, cough Mode of Arrival: Ambulatory Source of Information: Patient Limitations: No Limitations Time Seen by Provider: 05/14/24 10:56 Description of Symptoms (Recalled from Triage Doc. by RN): PATIENT C/O COUGH, CONGESTION, HEADACHE, BACK PAIN, AND EAR PAIN X 2 WEEKS HEENT Symptoms (Recalled from RN notes): Yes Resp Symptoms (Recalled from RN notes): Yes Skin Symptoms (Recalled from RN notes): No MS Symptoms (Recalled from RN notes): No Functional Status (Recalled from RN notes): WNL History of Present Illness Provider Complaint: Patient states that she has been having cough, sinus congestion and drainage, pain in her ears pain in ribs from coughing and feeling full and pain in both ears States that she was seen in the ED about a week and half ago and was dx with bronchitis and states that she finised the steriods they give her and they didnt help States today she was still not feeling any better and felt like her sinus pressure and cough was getting worse so she came back in Related Data Home Medications ?Medication ?Instructions ?Recorded ?Confirmed venlafaxine 75 mg capsule,extended 75 mg PO DAILY 10/07/23 05/14/24 release 24 hr ibuprofen 800 mg tablet 800 mg PO Q8H PRN Pain 05/14/24 05/14/24 methocarbamol 750 mg tablet 750 mg PO HS 05/14/24 05/14/24 Previous Rx's ?Medication ?Instructions ?Recorded albuterol sulfate 90 mcg/actuation 2 puff inhalation Q6H PRN 05/14/24 aerosol inhaler shortness of breath or wheezing #8.5 grams azithromycin 250 mg tablet See Rx Instructions PO .COMPLEX 5 05/14/24 (Zithromax Z-Edison) days #6 tabs guaifenesin 600 mg tablet, 1,200 mg (2 x 600 mg) PO BID PRN 05/14/24 extended release 12 hr (Mucinex) cough #20 tabs methylprednisolone 4 mg tablets in See Rx Instructions .Route 05/14/24 a dose pack (Medrol (Edison)) .COMPLEX 6 days #21 tabs promethazine-DM 6.25 mg-15 mg/5 mL 5 ml PO Q6H PRN cough #118 mL 05/14/24 oral syrup Allergies Allergy/AdvReac Type Severity Reaction Status Date / Time No Known Allergies Allergy Verified 02/07/24 09:12 Worker's Comp Is this a Worker's Comp case?: No [facility] Disclaimer: The information contained in this section may have been updated after the patient was seen, as this information can be updated by other users. Medical History (Updated 05/14/24 @ 11:19 by Alva Figueroa APRN) Impacted cerumen, left ear Acute left otitis media Depression Anxiety Urinary tract infection Surgical History (Updated 02/07/24 @ 09:18 by Melissa Farias, LIZBETH) History of ear surgery History of tympanostomy tube placement Social History (Updated 02/07/24 @ 09:18 by Melissa Farias, LIZBETH) Smoking Status: Current some day smoker tobacco type: cigarettes packs per day: 1 alcohol intake: never current occupational status: unemployed ROS Obtained: Yes All systems reviewed & no additional complaints except as documented and Yes Systems reviewed as appropriate & no additional complaints except as documented Constitutional Constitutional: Reports system reviewed and no additional complaints, except as documented, Reports as per HPI and Reports headache(s) ENT Ears, Nose, Mouth, and Throat: Reports system reviewed and no additional complaints, except as documented, Reports as per HPI, Reports otalgia, Reports headache(s), Reports sinus pain and Reports sinus pressure Cardiovascular Cardiovascular: Reports system reviewed and no additional complaints, except as documented and Reports as per HPI Respiratory Respiratory: Reports system reviewed and no additional complaints, except as documented, Reports as per HPI, Reports chest congestion and Reports cough Gastrointestinal Gastrointestingal: Reports system reviewed and no additional complaints, except as documented and as per HPI Neurologic Neurologic: Reports headache(s) Physical Exam General General appearance: alert and in no apparent distress ENT ENT exam: Present mucous membranes moist Expanded ENT Exam Nose exam: Present sinus tenderness Throat exam: Present other (PND noted with pharyngeal erythema ) Chest Chest inspection: Present normal inspection and symmetric chest wall rise Respiratory Respiratory exam: Present normal lung sounds bilaterally; Absent respiratory distress or wheezes Cardiovascular Cardiovascular exam: Present regular rate, normal rhythm and normal heart sounds Neurological Exam Neurological exam: Present alert, oriented X3 and normal gait Medical Decision Making Medical Records Screening: Per USPSTF and CDC recommendations, given the prevalence of disease in our region, it is our hospital?s policy to screen for HIV and viral Hepatitis for all patients aged 18 and over and those with ongoing risk factors. Nick Inquiry Pt receiving controlled substance: No Nick was queried for this patient: No Vital Signs: 05/14/24 10:45 Temperature 98.3 F Temperature Source Oral Pulse Rate [Left Brachial] 101 H Respiratory Rate 19 Blood Pressure [Left Arm] 139/89 Blood Pressure Mean [Left Arm] 105 Blood Pressure Source [Left Arm] Automatic Cuff Blood Pressure Position [Left Arm] Sitting 02 Sat by Pulse Oximetry 98 Medical Decision Narrative: discussed CXR patient declined just had one less than 2 weeks ago
[2024-05-14 11:21] VITALS: BP 108/65; PULSE 79; RESP 18; TEMP 36.9; O2SAT 99
== END 2024-05-14 11:25 | disposition home or self-care (01) ==
PROVIDERS: Emergency Provider Nurse Practitioner; PCP Family Medicine
DX: J20.9 Acute bronchitis, unspecified (principal); J32.9 Chronic sinusitis, unspecified; R05.9 Cough, unspecified; R09.81 Nasal congestion; H92.09 Otalgia, unspecified ear; R07.81 Pleurodynia; R51.9 Headache, unspecified
CPT/HCPCS: 99212; G0381

== ENCOUNTER 2025-02-10 12:24 | Outpatient (CLI) | payer OTHER, SELFPAY ==
--- OUTSIDE RECORDS SUMMARY | 2012-09-04 11:30 | XMS_ITS | Continuity of Care Document ---
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 Phone Severiano CALLAWAY, Travon Unavailable Unavailable Allergies, Adverse Reactions, Alerts Substance Reaction Status Criticality No Known allergies Medications Medication Instructions Dosage Effective Dates (start - stop) Status Comments LEXAPRO (unknown strength) Not Available - Active TEGRETOL (unknown strength) Not Available - Active Procedures Procedure Date EYE EXAM, NEW PATIENT Advance Directives Directive Yes / No Effective Date File Name No Information Encounters Encounter Description Practice Location Reason(s) For Visit Diagnoses Date Provider Providers Copied on Encounter [facility], Corporate [id number] [place], [place], [id number], tel:[phone] [facility] 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 [address] [place], [place], [id number], [place]. tel:[phone] Family History Family Member Type Diagnosis Age At Onset Father Problem (finding) diabetes melli tus in first degree relative Mother Problem (finding) glaucoma Grandmother (m) Problem (finding) Cancer Payers Payer name Insurance type Covered libertarian ID Authoriza tijohnathon(s) [facility] CI [id number] Social History Type Description Quantity Date Captured Comments Alcohol Use Details No Caffeine Use Details Unknown Tobacco Use Status No Information Smoking Status Former smoker Smoking Tobacco Use Details Cigarette: Years Used 8 Cigarette: No Details Available Sex Female Chief Complaint And Reason For Visit No Information Reason For Referral Reason For Referral No Information History Of Present Illness Encounter Date Complaint History Of Prese nt Illness No Information Functional Status Date Functional Assessmen t No Information Instructions Date Instruction Additional Infor tono - Return in [address] العلي for complete exam. 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 No acute intraocular pathology. - Discussed diagnosis in detail with patient.Self limited - improving.Educational materials provided: to patient/caregiver. 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
--- OUTSIDE RECORDS SUMMARY | 2024-12-13 16:42 | XMS_ITS | Encounter Summary ---
Author Organization [facility] Address [address] [place] [address] Care Team Providers Care Dean Of Boys Name Role Phone Alfredo Marc PA-C Primary Care Provider Reason for Referral * MRI/CAT/PET Scan (Routine) - Closed Specialty Diagnoses / Procedures Referred By El connell Referred To Contact Radiology Diagnoses Postlaminectomy syndrome, not elsewhere classified Procedures MRI Thoracic Spine Without Contrast Garry aSunders MD [address] [place] [address] Phone: tel: fax: Referral ID Status Reason Start Date Expiration Date Visits Re quested Visits Authorized Closed 11/28/2024 02/27/2026 1 1 Reason for Visit * MRI/CAT/PET Scan (Routine) - Closed Specialty Diagnoses / Procedures Referred By El connell Referred To Contact Radiology Diagnoses Postlaminectomy syndrome, not elsewhere classified Procedures MRI Thoracic Spine Without Contrast Garry Saunders MD [address] [place] [id number] Phone: tel: fax: Referral ID Status Reason Start Date Expiration Date Visits Re quested Visits Authorized Closed 11/28/2024 02/27/2026 1 1 Encounter Details Date Type Department Care Team (Late st Contact Info) Description 12/13/2024 4:42 PM EDT - 12/13/2024 11:59 PM EDT Hospital Encounter [facility] [place] [address] [place] [address] Garry Saunders MD [address] [facility] [facility] [place] [address] Postlaminectomy syndrome, not elsewhere classified Discharge Disposition: Home or Self Care Social History Tobacco Use Types Packs/Day Years Used Date Smoking Tobacco: Every Day Cigarettes 1 25 Passive Smoke Exposure: Current Smokeless Tobacco: Never Alcohol Use Standard Drinks/Week Comments No 0 (1 standard drink = 0.6 oz pur e alcohol) PHQ-2 Answer Date Recorded Retired PHQ-9: Brief Depression Severity Measure Score 1 11/28/2022 Abuse Screen Answer Date Recorded Feels Unsafe at Home or Work/School no 07/09/2024 Feels Threatened by Someone no 06/19 Does Anyone Try to Keep You From Having Contact with Others or Doing Things Outside Your Home? no 07/09/2024 Physical Signs of Abuse Present no 07/09/2024 Housing Stability Answer Date Recorded Current Living Arrangements home 06/19 Potentially Unsafe Housing Conditions Not on mickey e 07/09/2024 Disabilities Answer Date Recorded Difficulty Concentrating, Remembering or Making Decisions no 07/09/2024 Difficulty Managing Errands Independently no 07/09/2024 Education Answer Date Recorded Help with school or training? Not on file Preferred Language Cook Islander 07/03/2024 PHQ-2 Answer Date Recorded Patient Health Questionnaire-9 Score 10 11/28/2024 Comments No Sex and Gender Information Value Date Recorded Sex Assigned at Not on file Legal Sex Female 12:03 PM EDT Gender Identity Not on file Sexual Orientation Not on file documented as of this encounter Medications at Time of Discharge amoxicillin (AMOXIL) 875 MG tabletIndications :Acute left otitis media Take 1 tablet by mouth 2 (Two) Times a Day. 20 tablet 11/28/2024 buPROPion XL (Wellbutrin XL) 150 MG 24 hr tabletIndications :Anxiety and depression Take 1 tablet by mouth Daily. 90 tablet 1 11/28/2024 celecoxib (CeleBREX) 200 MG capsuleIndication s:Acute bilateral low back pain without sciatica Take 1 capsule by mouth 2 (Two) Times a Day. 180 capsule 12/02/2024 cyclobenzaprine (FLEXERIL) 10 MG tabletIndications :Chronic midline low back pain with left-sided sciatica 1 PO QHS 30 tablet 2 11/28/2024 Elderberry-Vitami n C-Zinc (ELDERBERRY IMMUNE HEALTH GUMMY PO) Take 3 tablets by mouth Daily. 3 GUMMIES A DAY ibuprofen (ADVIL,MOTRIN) 800 MG tablet Take 1 tablet by mouth Every 6 (Six) Hours As Needed for Mild Pain. methocarbamol (ROBAXIN) 500 MG tablet Take 1.5 tablets by mouth 2 (Two) Times a Day. methocarbamol (ROBAXIN) 750 MG tablet Take 1 tablet by mouth 4 (Four) Times a Day As Needed for Muscle Spasms. venlafaxine XR (EFFEXOR-XR) 150 MG 24 hr capsuleIndication s:Perimenopausal Take 1 capsule by mouth Daily. 90 capsule 12/02/2024 hydrOXYzine (ATARAX) 50 MG tabletIndications :Insomnia, unspecified type 1/2-1 po nightly PRN insomnia 20 tablet 1 11/28/2024 documented as of this encounter Plan of Treatment Not on file documented as of this encounter Procedures Procedure Name Priority Date/Time Associated Diagnosis Comments MRI THORACIC SPINE WO CONTRAST Routine 12/13/2024 5:16 PM EDT Postlaminectomy syndrome, not elsewhere classified documented in this encounter Results * MRI Thoracic Spine Without Contrast (12/13/2024 5:16 PM EDT) Anatomical Region Laterality Modality Spine, T-spine N/A Magnetic Resonan ce 12/13/2024 7:00 PM EDT Impressions 12/13/2024 7:04 PM EDT Mild degenerative changes of the thoracic spine. Electronically Signed: Jp Heart MD 12/13/2024 7:04 PM EDT Workstation ID: [id number] Narrative 12/13/2024 7:04 PM EDT MRI THORACIC SPINE WO CONTRAST Date of Exam: 12/13/2024 5:00 PM EDT Indication: m96.1. Comparison: None available. Technique: Routine multiplanar/multisequence sequence images of the thoracic spine were obtained without contrast administration. Findings: Thoracic vertebral body height and alignment are normal. No marrow edema. The thyroid gland is normal. The visualized lung echeverria are clear of the MRI is limited for evaluation of the chest. The heart and pericardium are normal. T1-T2: No significant spinal canal or foraminal narrowing. T2-T3: No significant spinal canal or foraminal narrowing. T3-T4: Facet disease. Disc bulge. Minimal canal stenosis. No foraminal narrowing. T4-T5: Facet disease and ligamentum flavum thickening. Mild right foraminal narrowing. No canal stenosis. T5-T6: Facet disease. Disc bulge. Minimal canal stenosis. No foraminal narrowing. T6-T7: Facet disease. No canal stenosis or foraminal narrowing. T7-T8: Facet disease. No canal stenosis. No foraminal narrowing. T8-T9: Facet disease. No canal stenosis or foraminal narrowing. T9-T10: Facet disease. No canal stenosis. No foraminal narrowing. T10-T11: Disc bulge. Minimal canal stenosis. No foraminal narrowing. T11-T12: No significant spinal canal or foraminal narrowing. Facet disease. T12-L1: Disc bulge with minimal canal stenosis. No foraminal narrowing. Procedure Note Jp Heart MD - 12/13/2024 MRI THORACIC SPINE WO CONTRAST Date of Exam: 12/13/2024 5:00 PM EDT Indication: m96.1. Comparison: None available. Technique: Routine multiplanar/multisequence sequence images of thethoracic spine were obtained without contrast administration. Findings: Thoracic vertebral body height and alignment are normal. Nomarrow edema. The thyroid gland is normal. The visualized lung echeverria areclear of the MRI is limited for evaluation of the chest. The heart andpericardium are normal. T1-T2: No significant spinal canal or foraminal narrowing. T2-T3: No significant spinal canal or foraminal narrowing. T3-T4: Facet disease. Disc bulge. Minimal canal stenosis. No foraminalnarrowing. T4-T5: Facet disease and ligamentum flavum thickening. Mild rightforaminal narrowing. No canal stenosis. T5-T6: Facet disease. Disc bulge. Minimal canal stenosis. No foraminalnarrowing. T6-T7: Facet disease. No canal stenosis or foraminal narrowing. T7-T8: Facet disease. No canal stenosis. No foraminal narrowing. T8-T9: Facet disease. No canal stenosis or foraminal narrowing. T9-T10: Facet disease. No canal stenosis. No foraminal narrowing. T10-T11: Disc bulge. Minimal canal stenosis. No foraminal narrowing. T11-T12: No significant spinal canal or foraminal narrowing. Facetdisease. T12-L1: Disc bulge with minimal canal stenosis. No foraminal narrowing. IMPRESSION: Mild degenerative changes of the thoracic spine. Electronically Signed: Jp Heart MD 12/13/2024 7:04 PM EDT Workstation ID: [id number] Garry Saunders MD IMG MRI ORDERABLES Final Resu lt documented in this encounter Visit Diagnoses Diagnosis Postlaminectomy syndrome, not elsewhere classified documented in this encounter Care Teams Dean Of Boys Relationship Specialty Start Date End Date Alfredo Marc PA-C [address] [place] [address] PCP - General Family Medicine 12/02/24 documented as of this encounter
--- NOTE | 2025-02-10 12:28 | XR_ITS ---
FINAL REPORT CLINICAL HISTORY: right knee pain FINDINGS: AP, lateral and oblique views of the right knee were obtained. There is no prior exam for comparison. There is no acute osseous abnormality of the right knee. On the lateral view, there appears to be notch signal in the lateral femoral condyle which could be associated with ACL injury. There is no joint effusion. No other soft tissue abnormality identified. IMPRESSION: Possible ACL injury. Consider MRI if indicated. Reviewed, Interpreted and Dictated by Corine Luz MD Transcribed by Melissa Blanton Authenticated and [facility]
--- OUTSIDE RECORDS SUMMARY | 2025-02-10 12:28 | XMS_ITS | Encounter Summary ---
Author Organization Healthcare Address [address] [place] [address] Care Team Providers Care Furnace Liner Name Role Phone Melissa Burks APRN Primary Care Provider [phone] Encounter Details Date Type Department Care Team (Late st Contact Info) Description 11/04/2020 [facility] [address] [place] [id number] Provider, External Social History Tobacco Use Types Packs/Day Years Used Date Smoking Tobacco: Every Day Alcohol Use Standard Drinks/Week Comments No 0 (1 standard drink = 0.6 oz pur e alcohol) Comments Unknown Sex and Gender Information Value Date Recorded Sex Assigned at Not on file Legal Sex Female 6:20 PM EDT Gender Identity Not on file Sexual Orientation Not on file documented as of this encounter Plan of Treatment Not on file documented as of this encounter Visit Diagnoses Not on filedocumented in this encounter Care Teams Furnace Liner Relationship Specialty Start Date End Date Melissa Burks APRN [address] [place] [address] PCP - General 10/29/20 documented as of this encounter
--- OUTSIDE RECORDS SUMMARY | 2025-02-10 12:28 | XMS_ITS | Encounter Summary ---
Author Organization [facility] Address [address] [place] [address] Care Team Providers Care Warehouse Selector Name Role Phone Alfredo Marc PA-C Primary Care Provider Reason for Visit * Reason Comments Med Refill Encounter Details Date Type Department Care Team (Late st Contact Info) Description 11/26/2024 Refill [facility] [address] [place] [address] Jelani Contreras PA [address] [place] [address] Perimenopausal Social History Tobacco Use Types Packs/Day Years [...] or training? Not on file Preferred Language Greenlandic 07/03/2024 PHQ-2 Answer Date Recorded Patient Health Questionnaire-9 Score 10 11/28/2024 Comments No Sex and Gender Information Value Date Recorded Sex Assigned at Not on file Legal Sex Female 12:03 PM EDT Gender Identity Not on file Sexual Orientation Not on file documented as of this encounter Functional Status * Question Answer Date of Assessment Author 1. Wish to be (Past 1 Month) Yes 025 9:27 AM Magen Ching MA 2. Non-Specific Active Suici jessi Thoughts (Past 1 Month) No 11/28/2024 9:27 AM DIANAT Chris Hamilton MA * Calculated C-SSRS Risk Score (Lifetime/Recent) Answer Date of Assessment Author Low Risk 11/28/2024 9:27 AM Magen Ching MA * Foster Suicide Severity Rating Scale (Screener/Recent Self-Report) Question Answer Date of Assessment Author 6. Suicidal Behavior (Lifetime) No 9:27 AM Magen Ching MA * Question Answer Date of Assessment Author Little interest or pleasure in doing things Several days 11/28/2024 9:27 AM Keshia Ching MA Feeling down, depressed, or hopeless More than half the days 11/28/2024 9:27 AM Magen Ching MA Patient Health Questionnaire-2 Score 3 11/28/2024 9:27 AM Magen Ching MA Trouble falling or staying asleep, or sleeping too much Several days 11/28/2024 9:27 AM Magen Ching M A Feeling tired or having little energy Not at all 11/28/2024 9:27 AM Magen Ching M A Poor appetite or overeating Not at all 11/28/2024 9:27 AM Magen Ching M A Feeling bad about yourself - or that you are a failure or have let yourself or your family down Several days 11/28/2024 9:27 AM Magen Ching M A Trouble concentrating on things, such as reading the newspaper or watching television Several days 11/28/2024 9:27 AM Magen Ching M A Moving or speaking so slowly that other people could have noticed? Or the opposite - being so fidgety or restless that you have been moving around a lot more than usual. Nearly every day 11/28/2024 9:27 AM Magen Ching M A Thoughts that you would be better off or hurting yourself in some way Several days 11/28/2024 9:27 AM Magen Ching MA Patient Health Questionnaire-9 Score 10 11/28/2024 9:27 AM Magen Ching MA documented as of this encounter Plan of Treatment Not on file documented as of this encounter Visit Diagnoses Diagnosis Perimenopausal Symptomatic menopausal or female climacteric states documented in this encounter Care Teams Warehouse Selector Relationship Specialty Start Date End Date Alfredo Marc PA-C [facility] [place] [address] PCP - General Family Medicine 12/02/24 documented as of this encounter
--- OUTSIDE RECORDS SUMMARY | 2025-02-10 12:28 | XMS_ITS | Encounter Summary ---
[facility] Address [address] [place] [address] Care Team Providers Care Windows Mobile Developer Name Role Phone Alfredo Marc PA-C Primary Care Provider [phone] Reason for Visit * Reason Comments Med Refill Encounter Details Date Type Department Care Team (Late st Contact Info) Description 12/28/2024 Refill [facility] [address] [place] [address] Jelani Contreras PA [address] [place] [address] Acute bilateral low back pain without sciatica Social History Tobacco Use Types Packs/Day Years [...] or training? Not on file Preferred Language Moldovan 07/03/2024 PHQ-2 Answer Date Recorded Patient Health Questionnaire-9 Score 10 11/28/2024 Comments No Sex and Gender Information Value Date Recorded Sex Assigned at Not on file Legal Sex Female 12:03 PM EDT Gender Identity Not on file Sexual Orientation Not on file documented as of this encounter Plan of Treatment Not on file documented as of this encounter Visit Diagnoses Diagnosis Acute bilateral low back pain without sciatica documented in this encounter Care Teams Windows Mobile Developer Relationship Specialty Start Date End Date Alfredo Marc, JARONC [address] [place] [address] PCP - General Family Medicine 12/02/24 documented as of this encounter
--- OUTSIDE RECORDS SUMMARY | 2025-02-10 12:28 | XMS_ITS | Encounter Summary ---
Author Organization [facility] Address [address] [place] [address] Care Team Providers Care Financial Dealers Name Role Phone Alfredo Marc PA-C Primary Care Provider Reason for Visit * Reason Onset Date Comments Med Refill 01/23/2023 Encounter Details Date Type Department Care Team (Late st Contact Info) Description 01/23/2023 Refill [facility] [address] [place] [address] Huan Brown MD [address] [place], [place] [id number] Acute strain of neck muscle, initial encounter Social History Tobacco Use Types Packs/Day Years Used Date Smoking Tobacco: Every Day Cigarettes 1 25 Smokeless Tobacco: Never Alcohol Use Standard Drinks/Week Comments No 0 (1 standard drink = 0.6 oz pur e alcohol) PHQ-2 Answer Date Recorded Retired PHQ-9: Brief Depression Severity Measure Score 1 11/28/2022 PHQ-2 Answer Date Recorded Retired PHQ-9: Brief Depression Severity Measure Score 1 11/28/2022 Comments Unknown Sex and Gender Information Value Date Recorded Sex Assigned at Not on file Legal Sex Female 12:03 PM EDT Gender Identity Not on file Sexual Orientation Not on file documented as of this encounter Miscellaneous Notes * Telephone Encounter - Che Qeuvedo - 01/24/2023 9:30 AM EDT LVM THAT PT NEEDS AN APPT TO OBTAIN REFILLS. * Telephone Encounter - Flora Eastman RegSched Rep - 01/23/2023 3:43 PM EDT Caller: Nancy Pearce Relationship: Self Best call back number: [phone] Requested Prescriptions: Requested Prescriptions Pending Prescriptions Disp Refills celecoxib (CeleBREX) 200 MG capsule 180 capsule 0 Sig: Take 1 capsule by mouth 2 (Two) Times a Day. Patient needs to be seen for further refills-needs labs. Pharmacy where request should be sent: [facility] [id number] [place], [place] - [address] [facility] [phone] [facility] [phone] FX Last office visit with prescribing clinician: 02/08/2022 Last telemedicine visit with prescribing clinician: Visit date not found Next office visit with prescribing clinician: Visit date not found Additional details provided by patient: PLEASE REFILL OR CALL IF APPOINTMENT NEEDED Does the patient have less than a 3 day supply: [] Yes [x] No Would you like a call back once the refill request has been completed: [x] Yes [] No If the office needs to give you a call back, can they leave a voicemail: [x] Yes [] No Narendra Bynum 01/23/23 15:43 EDT documented in this encounter Plan of Treatment Not on file documented as of this encounter Visit Diagnoses Diagnosis Acute strain of neck muscle, initial encounter documented in this encounter Additional Health Concerns Assessment Noted Time PHQ-2 Depression Total Score: 1 11/29/19 23 8:59 AM EDT documented as of this encounter Care Teams Financial Dealers Relationship Specialty Start Date End Date Alfredo Marc PA-C [address] [place] [address] PCP - General Family Medicine 12/02/24 documented as of this encounter
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
--- OUTSIDE RECORDS SUMMARY | 2025-02-10 12:28 | XMS_ITS | Encounter Summary ---
Author Organization Healthcare Address [address] [place] [address] Care Team Providers Care Electrician Telephone Name Role Phone Melissa Burks APRN Primary Care Provider [phone] Encounter Details Date Type Department Care Team (Late st Contact Info) Description 02/08/2022 Abstract [facility] Audiology [address] [place] [address] Zeinab Myles, AuD [address] [place] [address] Social History Tobacco Use Types Packs/Day Years Used Date Smoking Tobacco: Every Day Smokeless Tobacco: Never Alcohol Use Standard Drinks/Week Comments No 0 (1 standard drink = 0.6 oz pur e alcohol) Comments No Sex and Gender Information Value Date Recorded Sex Assigned at Not on file Legal Sex Female 6:20 PM EDT Gender Identity Not on file Sexual Orientation Not on file documented as of this encounter Plan of Treatment Not on file documented as of this encounter Visit Diagnoses Not on filedocumented in this encounter Care Teams Electrician Telephone Relationship Specialty Start Date End Date Melissa Burks APRN [address] [address] PCP - General 10/29/20 documented as of this encounter
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
--- OUTSIDE RECORDS SUMMARY | 2025-02-10 12:28 | XMS_ITS | Clinical Summary ---
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 Gender Identity Not on file Sexual Orientation Not on file Last Filed Vital Signs Vital Sign Reading Time Taken Comments Blood Pressure 148/81 04/26/2024 9:22 PM EST Pulse 98 04/26/2024 9:22 PM EST Temperature 36.7 C (98.1 F) 04/26/2024 9:22 PM EST Respiratory Rate 14 04/26/2024 9:22 PM EST Oxygen Saturation 99% 04/26/2024 9:22 PM EST Inhaled Oxygen Concentration - - Weight 81.6 kg (180 lb) 04/26/2024 7:46 PM EST Height 172.7 cm (5' 8 ) 04/26/2024 7:46 PM EST Body Mass Index 27.37 04/26/2024 7:46 PM EST Plan of Treatment Health Maintenance Due Date Last Done Comments CT Colonography 1976 Colonoscopy 1976 Colorectal Cancer Screening 1976 FOBT/FIT 1976 Fit-DNA (Cologuard) 1976 Sigmoidoscopy 1976 Depression Screening (12+) 1988 Tobacco Cessation Counseling and Screening (12+) 1988 HIV Screening 1991 Hepatitis C Screening 1994 Pap Smear 1997 Breast Cancer Screening 2016 Lipid Panel 01/05/2022 01/05/2017 COVID-19 VACCINE (3 - 2023-2 5 season) 2024 07/12/2020, 06/21/2020 Influenza Vaccine (#1) 2025 DTAP/TDAP/TD VACCINES (2 - T d or Tdap) 01/04/2027 01/04/2017 Pneumococcal Vaccine: 0-49 Years Aged Out 01/05/2017 No longer eligible b ased on patient's age to complete this topic Insurance [place] IV[place], [place] [id number] [employer] BLUE CROSS/BLUE SHIELD Care Teams Walnut Dehydrator Operator Relationship Specialty Start Date End Date Bhavya Melendrez DO [address] [place] [address] [place] [address] PCP - General Family Medicine 04/26/24
--- OUTSIDE RECORDS SUMMARY | 2025-02-10 12:28 | XMS_ITS | Encounter Summary ---
Author Organization [facility] Address [address] [place] [address] Care Team Providers Care Pick Out Hand Name Role Phone Alfredo Marc PA-C Primary Care Provider Reason for Visit * Reason Onset Date Comments Med Refill 02/27/2024 Encounter Details Date Type Department Care Team (Late st Contact Info) Description 02/27/2024 Refill [facility] FAMILY MEDICINE [address] [place] [address] Huan Brown MD [address] [place], [place] [id number] Cervicalgia Social History Tobacco Use Types Packs/Day Years [...] encounter Miscellaneous Notes * Telephone Encounter - Cindy Mendes RegSched Rep - 02/27/2024 1:57 PM EDT Caller: Nancy Pearce Juanita Relationship: Self Best call back number: [phone] Requested Prescriptions: Requested Prescriptions Pending Prescriptions Disp Refills celecoxib (CeleBREX) 200 MG capsule 180 capsule 0 Sig: Take 1 capsule by mouth 2 (Two) Times a Day. Pharmacy where request should be sent: [facility] [id number] - [place], [place] - [address] [facility] [phone] [facility] [phone] Last office visit with prescribing clinician: Visit date not found Last telemedicine visit with prescribing clinician: Visit date not found Next office visit with prescribing clinician: Visit date not found Additional details provided by patient: PATIENT WANTS A 90 DAY SUPPLY Does the patient have less than a 3 day supply: [x] Yes [] No Would you like a call back once the refill request has been completed: [] Yes [x] No If the office needs to give you a call back, can they leave a voicemail: [] Yes [x] No Narendra Best 02/27/24 13:58 EDT documented in this encounter Plan of Treatment Not on file documented as of this encounter Visit Diagnoses Diagnosis Cervicalgia documented in this encounter Additional Health Concerns Assessment Noted Time PHQ-2 Depression Total Score: 1 11/29/19 23 8:59 AM EDT documented as of this encounter Care Teams Pick Out Hand Relationship Specialty Start Date End Date Alfredo Marc PA-C [address] [place] [address] PCP - General Family Medicine 12/02/24 documented as of this encounter
--- OUTSIDE RECORDS SUMMARY | 2025-02-10 12:28 | XMS_ITS | Clinical Summary ---
Author Organization Healthcare Address [address] [place] [address] Care Team Providers Care Auto Winder Name Role Phone Melissa Burks APRN Primary Care Provider Allergies Active Allergy Reactions Criticality Noted Date Comments Hydrocodone Other - please docum ent in the comment field Low 09/02/2020 N/V Hydrocodone-Acetaminophen Unknown - Nathalia ent states they do not know rxn details Low 11/12/2020 Medications celecoxib (CeleBREX) 200 MG capsule Take by mouth. 9 Active methocarbamol (Robaxin) 750 MG tablet Take by mouth 1 (one) time each day. 9 Active ofloxacin (Floxin) 0.3 % otic solution Administer 4 drops into each ear 1 (one) time each day. 4 DROPS IN AFFECTED EAR TWICE DAILY PRN DRAINAGE 1 Active calcium-vitamin D 500-200 MG-UNIT tablet Take 1 tablet by mouth. 7 Active fluticasone (Flonase) 50 MCG/ACT nasal spray 1 Active Active Problems Problem Noted Date Diagnosed Date Cholesteatoma of left ear 08/18/2020 Bilateral tinnitus 08/17/2020 Benign paroxysmal vertigo 07/08/2020 Asymmetrical sensorineural hearing loss 09/28/19 19 Mixed hearing loss of left ear 09/27/2018 Cigarette nicotine dependence without complicati on 11/05/2017 Foraminal stenosis of cervical region 01/17/2017 Overview (06/09/2021): significant at C3/C4, C4/C5 significant at C3/C4, C4/C5 Family History Medical History Relation Name Comments Hypertension Father Diabetes Mother Diabetes Sister Relation Name Status Comments Father Mother Sister Social History Tobacco Use Types Packs/Day Years [...] Sign Reading Time Taken Comments Blood Pressure 132/85 06/09/2021 10:07 AM EST Pulse 74 06/09/2021 10:07 AM EST Temperature 36.8 C (98.2 F) 06/09/2021 10:07 AM EST Respiratory Rate 14 06/09/2021 10:07 AM EST Oxygen Saturation 96% 06/09/2021 10:07 AM EST Inhaled Oxygen Concentration - - Weight 104 kg (230 lb) 06/09/2021 10:07 AM EST Height 172.7 cm (5' 8 ) 06/09/2021 10:07 AM EST Body Mass Index 34.97 06/09/2021 10:07 AM EST Plan of Treatment Health Maintenance Due Date Last Done Comments [facility]-Depression Screening 1976 [facility]-Infant/Child/Adol SDOH Screenings 1976 [facility]- SDOH Screenings 1994 [facility]-Adult SDOH Screenings 1994 [facility]-Hepatitis B Vaccines (1 of 3 - 19+ 3-dose series) 1995 [facility]-Pap Smear 06/06/2013 06/06/2010 [facility]-Cervical Cancer Screening 06/06/2015 [facility]-HPV/Cotest 06/06/2015 06/06/2010 CT Colonography 2021 Colonoscopy 2021 FIT-DNA 2021 FIT 2021 FOBT 2021 Sigmoidoscopy 2021 [facility]-Colorectal Cancer Screening 2021 [id number]-32 Vaccine ( season) 2024 07/12/2020, 06/21/2020 [facility]-Influenza Vaccine (#1) 2025 [facility]-Zoster Vaccines (1 of 2) 2026 [facility]-DTaP,Tdap,and Td Vaccine s (2 - Td or Tdap) 01/04/2027 01/04/2017 [facility]-Pneumococcal Vaccine: Pediatrics (0 to 5 Years) and At-Risk Patients (6 to 49 Years) Aged Out 01/05/2017 No longer eligible b ased on patient's age to complete this topic HPV Vaccines Aged Out No longer eligi ble based on patient's age to complete this topic [facility]-HIB Vaccines Aged Out No longer e ligible based on patient's age to complete this topic [facility]-Hepatitis A Vaccines Aged Out No longer eligible based on patient's age to complete this topic [facility]-IPV Vaccines Aged Out No longer e ligible based on patient's age to complete this topic [facility]-Rotavirus Vaccines Aged Out No lo nger eligible based on patient's age to complete this topic Procedures Procedure Name Priority Date/Time Associated Diagnosis Comments CYTO DATA CONVERSION Routine 06/06/2010 12:00 AM EST from Last 3 Months or Most Recently Relevant to Health Maintenance Results * Cytology (06/06/2010 12:00 AM EST) 06/06/2010 06/09/2010 12: 51 PM EST Narrative SUNQUEST - 06/15/2010 11:12 AM EST [facility] MR #: [id number] [facility] [place] [id number] 1975 (Age: 34) FW Collect Date: 06/06/2010 00:00 Receipt Date: 06/09/2010 12:51 Page 1 DEPARTMENT OF PATHOLOGY AND LABORATORY MEDICINE CYTOPATHOLOGY REPORT Email: [email or web address] ATTENDING MD/Practitioner: Sanya Dickens MD Service: OB Location: REG Reported: 06/15/2010 11:12 Collected: 06/06/2010 00:00 INTERPRETATION A. THIN PREP (CERVICAL/VAGINAL): NEGATIVE FOR INTRAEPITHELIAL LESION OR MALIGNANCY. SATISFACTORY FOR EVALUATION; ENDOCERVICAL/ TRANSFORMATION ZONE COMPONENT PRESENT. Slide scanned and imaged by [employer] ThinPrep Imaging System with manual review of all selected echeverria. Electronically Signed Out By BRYN Pritchard(ASCP) BRYN Pritchard(ASCP) Cervical cytology is a screening test primarily for squamous cancers and precursors and has associated false negative and positive results. New technologies such as liquid based sampling may decrease but will not eliminate all false negative results. Regular screening and follow-up of unexplained clinical signs and symptoms are recommended to minimize false negative results. Please see the ASCCP website (www.asccp.org) for followup recommendations. If HPV testing was requested, correlation with the results is suggested (please call Microbiology at [phone] for results). CLINICAL INFORMATION: Menstrual History: : First Trimester Date of Last Menstrual Period: 04/25/10 Other Clinical Conditions: If ASCUS and > 24 years of age, HPV/DNA testing requested. SPECIMEN DESCRIPTION: A: THIN PREP (CERVICAL/VAGINAL) THIN PREP PROCESS CELLULAR ENHANCEMENT ICD: V76.2 CERVIX, SPECIAL SCREENING FOR MALIGNANT NEOPLASM F: A; RT IMAGE [id number] SNOMED CODES: A; [id number] In cases where a pathologist has signed out the report, the service has been rendered in part by a resident. The signing pathologist has performed and is responsible for the reported pathologic evaluation. Historical Provider LAB PATHOLOGY ORDERABLES Fin al Result SUNQUEST from Last 3 Months or Most Recently Relevant to Health Maintenance Care Teams Auto Winder Relationship Specialty Start Date End Date Melissa Burks, BHAVYA [address] [place] [address] PCP - General 10/29/20
--- OUTSIDE RECORDS SUMMARY | 2025-02-10 12:28 | XMS_ITS | Encounter Summary ---
[facility] Organization [facility] Address [address] [place] [address] Care Team Providers Care Crystal Gazer Name Role Phone Alfredo Marc PA-C Primary Care Provider Reason for Visit * Reason Onset Date Comments Med Refill 01/30/2025 Encounter Details Date Type Department Care Team (Late st Contact Info) Description 01/30/2025 Refill [facility] FAMILY MEDICINE [address] [place] [address] Alfredo Marc PA-C [address] [place], [place] [id number] Insomnia, unspecified type Social History Tobacco Use Types Packs/Day Years [...] or training? Not on file Preferred Language Citizen Of [place] 07/03/2024 PHQ-2 Answer Date Recorded Patient Health Questionnaire-9 Score 10 11/28/2024 Comments No Sex and Gender Information Value Date Recorded Sex Assigned at Not on file Legal Sex Female 12:03 PM EDT Gender Identity Not on file Sexual Orientation Not on file documented as of this encounter Plan of Treatment Not on file documented as of this encounter Visit Diagnoses Diagnosis Insomnia, unspecified type documented in this encounter Care Teams Crystal Gazer Relationship Specialty Start Date End Date Alfredo Marc, JARONC [address] [facility] [place] [address] PCP - General Family Medicine 12/02/24 documented as of this encounter
--- OUTSIDE RECORDS SUMMARY | 2025-02-10 12:28 | XMS_ITS | Encounter Summary ---
Author Organization [facility] Address [address] [place] [address] Care Team Providers Care Project Developer Name Role Phone Alfredo Marc PA-C Primary Care Provider Encounter Details Date Type Department Care Team (Late st Contact Info) Description 11/30/2024 Results Follow-Up [facility] FAMILY MEDICINE [address] [place] [address] Alfredo Marc PA-C [address] [place] [address] Social History Tobacco Use Types Packs/Day Years [...] or training? Not on file Preferred Language Angolan 07/03/2024 PHQ-2 Answer Date Recorded Patient Health [...] on filedocumented in this encounter Care Teams Project Developer Relationship Specialty Start Date End Date Alfredo Marc, LOY [address] [place] [address] PCP - General Family Medicine 12/02/24 documented as of this encounter
--- OUTSIDE RECORDS SUMMARY | 2025-02-10 12:28 | XMS_ITS | Encounter Summary ---
Author Organization [facility] Address [address] [place] [address] Care Team Providers Care Electronics Technology Department Chair Name Role Phone Alfredo Marc PA-C Primary Care Provider Encounter Details Date Type Department Care Team (Latest Contact Info) Description 12/13/2024 Travel Social History Tobacco Use Types Packs/Day Years [...] or training? Not on file Preferred Language [place] Citizen 07/03/2024 PHQ-2 Answer Date Recorded Patient Health [...] on filedocumented in this encounter Care Teams Electronics Technology Department Chair Relationship Specialty Start Date End Date Alfredo Marc PA-C [address] [place] [address] PCP - General Family Medicine 12/02/24 documented as of this encounter
--- OUTSIDE RECORDS SUMMARY | 2025-02-10 12:28 | XMS_ITS | Referral Summary ---
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
--- OUTSIDE RECORDS SUMMARY | 2025-02-10 12:28 | XMS_ITS | Encounter Summary ---
[facility] Organization [facility] Address [address] [place] [address] Care Team Providers Care Business Continuity Consultant Name Role Phone Alfredo Marc PA-C Primary Care Provider [phone] Reason for Visit * Reason Comments Med Refill Encounter Details Date Type Department Care Team (Late st Contact Info) Description 11/29/2021 Refill [facility] FAMILY MEDICINE [address] [place] [address] Huan Brown MD [address] [place], [place] [id number] Cervical pain (neck) Social History Tobacco Use Types Packs/Day Years [...] as of this encounter Visit Diagnoses Diagnosis Cervical pain (neck) Cervicalgia documented in this encounter Care Teams Business Continuity Consultant Relationship Specialty Start Date End Date Alfredo Marc PA-C [address] [place] [address] PCP - General Family Medicine 12/02/24 documented as of this encounter
== END 2025-02-10 23:59 | disposition home or self-care (01) ==
LOC: RAD 12:26
PROVIDERS: PCP Family Medicine; Visit Provider Physician Assistant
DX: M25.561 Pain in right knee (principal); R93.6 Abnormal findings on diagnostic imaging of limbs
CPT/HCPCS: 73562

== ENCOUNTER 2025-02-16 10:14 | Emergency (ER) | payer OTHER, SELFPAY ==
--- OUTSIDE RECORDS SUMMARY | 2012-09-04 11:30 | XMS_ITS | Continuity of Care Document ---
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 [address] [place], [place], [id number], [place]. tel:[phone] Family History Family Member Type Diagnosis Age At Onset Father Problem (finding) diabetes melli tus in first degree relative Mother Problem (finding) glaucoma Grandmother (m) Problem (finding) Cancer Payers Payer name Insurance type Covered republican ID Authoriza tijohnathon(s) [facility] CI [id number] Social History Type Description Quantity Date Captured [...]
[2025-02-16 10:21] VITALS: BP 155/100; PULSE 99; O2SAT 97
[2025-02-16 10:24] VITALS: BP 155/100; PULSE 100; RESP 18; TEMP 36.8; O2SAT 95; BMI 35.9
--- OUTSIDE RECORDS SUMMARY | 2025-02-16 10:26 | XMS_ITS | Encounter Summary ---
Author Organization [facility] Address [address] [place] [address] Care Team Providers Care Supervisor Meter Repair Shop Name Role Phone Alfredo Marc PA-C Primary Care Provider Encounter Details Date Type Department Care Team (Late st Contact Info) Description 11/30/2024 Results Follow-Up [facility] FAMILY MEDICINE [address] [place] [address] Alfredo Marc PA-C [address] [place] [address] Social History Tobacco Use Types [...] or training? Not on file Preferred Language Azeri 07/03/2024 PHQ-2 Answer Date Recorded Patient Health [...] on filedocumented in this encounter Care Teams Supervisor Meter Repair Shop Relationship Specialty Start Date End Date Alfredo Marc, LOY [address] [place] [address] PCP - General Family Medicine 12/02/24 documented as of this encounter
--- OUTSIDE RECORDS SUMMARY | 2025-02-16 10:26 | XMS_ITS | Referral Summary ---
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
--- OUTSIDE RECORDS SUMMARY | 2025-02-16 10:26 | XMS_ITS | Encounter Summary ---
Author Organization [facility] Address [address] [place] [address] Care Team Providers Care Name Role Phone Alfredo Marc PA-C Primary Care Provider Reason for Visit * Reason Comments Med Refill Encounter Details Date Type Department Care Team (Late st Contact Info) Description 11/29/2021 Refill [facility] FAMILY MEDICINE [address] [place] [address] Huan Brown MD [address] [place], [place] [id number] Cervical pain (neck) Social History Tobacco Use [...] Cervicalgia documented in this encounter Care Teams Relationship Specialty Start Date End Date Alfredo Marc PA-C [address] [place] [address] PCP - General Family Medicine 12/02/24 documented as of this encounter
--- OUTSIDE RECORDS SUMMARY | 2025-02-16 10:26 | XMS_ITS | Clinical Summary ---
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
--- OUTSIDE RECORDS SUMMARY | 2025-02-16 10:26 | XMS_ITS | Encounter Summary ---
[facility] Address [address] [place] [address] Care Team Providers Care Billet Heater Name Role Phone Alfredo Marc PA-C Primary Care Provider Reason for Visit * Reason Comments Med Refill Encounter Details Date Type Department Care Team (Late st Contact Info) Description 12/28/[address] [facility] FAMILY MEDICINE [address] [place] [address] Jelani Contreras PA [address] [place] [address] Acute bilateral low back pain [...] or training? Not on file Preferred Language Namibian 07/03/2024 PHQ-2 Answer Date Recorded Patient Health [...] sciatica documented in this encounter Care Teams Billet Heater Relationship Specialty Start Date End Date Alfredo Marc, JARONC [address] [place] [address] PCP - General Family Medicine 12/02/24 documented as of this encounter
--- OUTSIDE RECORDS SUMMARY | 2025-02-16 10:26 | XMS_ITS | Encounter Summary ---
[facility] Address [address] [place] [address] Care Team Providers Care Slip Presser Name Role Phone Alfredo Marc PA-C Primary Care Provider Reason for Visit * Reason Onset Date Comments Med Refill 01/30/2025 Encounter Details Date Type Department Care Team (Late st Contact Info) Description 01/30/2025 Refill [facility] FAMILY MEDICINE [address] [place] [address] Alfredo Marc PA-C [address] [place], [place] [id number] Insomnia, unspecified type Social History Tobacco Use [...] or training? Not on file Preferred Language [place]ib[place]ian 07/03/2024 PHQ-2 Answer Date Recorded Patient Health [...] type documented in this encounter Care Teams Slip Presser Relationship Specialty Start Date End Date Alfredo Marc, JARONC [address] [facility] [place] [address] PCP - General Family Medicine 12/02/24 documented as of this encounter
--- OUTSIDE RECORDS SUMMARY | 2025-02-16 10:26 | XMS_ITS | Clinical Summary ---
Author Organization [facility] Address [address] [place] [address] Care Team Providers Care Comsec Manager Name Role Phone Alfredo Marc PA-C Primary Care Provider Allergies Active Allergy Reactions Criticality Noted Date Comments Hydrocodone-Acetaminophen Nausea And Vomiting Low 0 11/12/2020 Medications ibuprofen (ADVIL,MOTRIN) 800 MG tablet Take 1 tablet by mouth Every 6 (Six) Hours As Needed for Mild Pain. Active Elderberry-Vitam in C-Zinc ([employer] [facility] PO) Take 3 tablets [...] patient should contact the suicide hotline (#: [phone]) and be seen at the nearest emergency [...] Yellow, [place] Clarity, UA Clear Clear Specific Braxton 1.030 1.005 - 1.030 pH, Urine 6.0 [...] Type Department Care Team Description 01/30/2025 Refill [facility] [address] [facility] [place] [address] Alfredo Marc PA-Orquidea Insomnia, unspecified type 12/28/2024 Refill [facility] [address] [facility] [place] [address] Jelani Contreras PA Acute bilateral low back pain without sciatica 12/13/2024 4:42 PM EDT - 12/13/2024 11:59 PM EDT Hospital Encounter [facility] MRI [place] [address] [facility] [address] [place] [address] Garry Saunders MD Postlaminectomy syndrome, not elsewhere classified Discharge Disposition: Home or Self Care 12/13/2024 Travel 12/01/2024 Telephone [facility] [address] [facility] [place] [address] Bhavya Melendrez, Results 11/30/2024 Results Follow-Up [facility] [address] [place] [address] Alfredo Marc PA-C 11/28/2024 9:30 AM EDT Office Visit [facility] [address] [place] [address] Alfredo Marc PA-C Acute left otitis media (Primary Dx); Anxiety and depression; Insomnia, unspecified type; Chronic midline low back pain with left-sided sciatica; Prediabetes 11/28/2024 Refill [facility] [address] [place] [address] Jelani Contreras PA Acute bilateral low back pain without sciatica; Perimenopausal 11/28/2024 Travel 11/26/2024 Refill [facility] [address] [place] [address] Jelani Contreras PA Perimenopausal from Last 3 Months Immunizations Immunization Administration [...] 05/18/2010 (Patient-Reported (Performed Externally)) COVID-19 Vaccine ( - season) 2024, 06/21/2020 INFLUENZA VACCINE 03/18/2025 04/08/2020, (Declined) TDAP/TD VACCINES (3 - Td or Tdap) 01/04/2027 01/04/2017, 08/30/2016 (Declined) HEPATITIS C SCREENING Completed 06/25/2020 Medical Devices Implanted Type Area Lease Attendant Device Identifier Shelf Expiration Date Model / Serial / Lot Implant-2020 Implanted: (Quantity not on file) Implant Mobile[employer]aver / / [id number] Description:0026 0150 At 09/02/2020 JOEL Centered alto partial -sizers Spng Hemo Avitene Ultrafoam Collgn 8x12.5x1cm - [id number] Implanted:Qty : 1 on 07/09/2024 by Gilberto Connelly MD at [facility] Implant Left: Spine Lumbar DAVOL (DIV OF [employer]) 03/15/2027 [id number] / / [id number] Kt Seal Hemos Abs Floseal Matrx Fast/Prep 10ml - [id number] Implanted:Qty : 1 on 07/09/2024 by Gilberto Connelly MD at [facility] Implant Left: Spine Lumbar HAWTHORNE CSMG [id number] 10/15/2025 [id number] / / [id number] Procedures Procedure Name Priority Date/Time Associated Diagnosis Comments SCANNED - IMAGING 02/10/2025 MRI THORACIC SPINE WO CONTRAST Routine 12/13/2024 5:16 PM EDT Postlaminectomy syndrome, not elsewhere classified CBC AND DIFFERENTIAL Routine 11/28/2024 9:54 AM EDT Prediabetes HEMOGLOBIN A1C Routine 11/28/2024 9:54 AM EDT Prediabetes HEPATITIS C ANTIBODY Routine 06/25/2020 10:40 AM EST Encounter for hepatitis C screening test for low risk patient from Last 3 Months or Most Recently Relevant to Health Maintenance Results * IMAGING SCANNED (02/10/2025) Anatomical Region Laterality Modality Radiographic Sallie ging Bhavya Melendrez IMG DIAGNOSTIC IMAGING ORDE NINFAASHANTI Final Result * MRI Thoracic Spine Without Contrast (12/13/2024 5:16 PM EDT) Anatomical Region Laterality Modality Spine, T-spine N/A Magnetic Resonan ce 12/13/2024 7:00 PM EDT Impressions 12/13/2024 7:04 PM EDT Mild degenerative changes of the thoracic spine. Electronically Signed: Jp Heart MD 12/13/2024 7:04 PM EDT Workstation ID: [id number] Narrative 12/13/2024 7:04 PM EDT MRI THORACIC [...] MD 12/13/2024 7:04 PM EDT Workstation ID: [id number] us Garry Saunders MD IM MRI ORDERABLES Final Resu lt * (ABNORMAL) CBC & Differential (11/28/2024 9:54 AM EDT) [facility] WBC 6.73 3.40 - 10.80 10*3/mm3 [facility] [...] - 11/29/2024 3:07 AM EDT Performed at: 01 - [place] [id number] Escrow Representative: Abebe Philip MD, Phone: [phone] Patient Fasting: N Alfredo Marc PA-C LAB BLOOD ORDERABLES Final R esult Performing Organization Address City/[facility]/ZIP Co de Phone Number [facility] (AMBULATORY) [address] [place] [address], [facility] [address] [place] [address], * (ABNORMAL) Hemoglobin A1c (11/28/2024 9:54 AM EDT) Hemoglobin A1C 7.00(H) 4.80 - 5.60 % [facility] Comment: Hemoglobin A1C Ranges: Increased Risk for Diabetes 5.7% to 6.4% Diabetes >= 6.5% Diabetic Goal < 7.0% Blood 11/28/2024 9:54 AM EDT 11/28/2024 Narrative [facility] (AMBULATORY) - 11/29/2024 3:07 AM EDT Performed at: [address] [place] [id number] Escrow Representative: Abebe Philip MD, Phone: [phone] Patient Fasting: N Alfredo Marc PA-C LAB BLOOD ORDERABLES Final R esult Performing Organization Address [facility] de Phone Number [facility] [address] [place] [address], [facility] [address] [place] [address], * Hepatitis C Antibody (06/25/2020 10:40 AM EST) Hep C Virus Ab <0.1 0.0 - 0.9 s/co ratio [facility] Comment: Negative: < 0.8 Indeterminate: 0.8 - 0.9 Positive: > 0.9 The CDC recommends that a positive HCV antibody result be followed up with a HCV Nucleic Acid Amplification test (276113). Blood 06/25/2020 10:4 0 AM EST 06/25/2020 Narrative [facility] (AMBULATORY) - 06/26/2020 8:11 AM EST Performed at: 01 - [facility] [address] [place], [place] [id number] Escrow Representative: Alonso Angulo PhD, Phone: [phone] Patient Fasting: N us Melissa Burks BUSINESS SERVICES INTERN LAB BLOOD ORDERABLES Final Resul t [facility] (AMBULATORY) [address] [place] [address], [facility] [address] [place] [address], from Last 3 Months or Most Recently Relevant to Health Maintenance Insurance [facility] EXCHANGE Care Teams Comsec Manager Relationship Specialty Start Date End Date Tari, Baili R, PA-C [address] [place] [address] PCP - General Family Medicine 12/02/24
--- OUTSIDE RECORDS SUMMARY | 2025-02-16 10:26 | XMS_ITS | Encounter Summary ---
[facility] Address [address] [place] [address] Care Team Providers Care Junior Mechanical Engineer Name Role Phone Alfredo Marc PA-C Primary Care Provider Reason for Visit * Reason Onset Date Comments Med Refill 02/27/2024 Encounter Details Date Type Department Care Team (Late st Contact Info) Description 02/27/2024 Refill [facility] [address] [place] [address] Huan Brown MD [address] [place], [place] [id number] Cervicalgia Social History Tobacco Use Types Packs/Day [...] Juanita Relationship: Self Best call back number: [phone] Requested Prescriptions: Requested Prescriptions Pending Prescriptions Disp Refills celecoxib (CeleBREX) 200 MG capsule 180 capsule 0 Sig: Take 1 capsule by mouth 2 (Two) Times a Day. Pharmacy where request should be sent: [facility] [id number] - [place], [place] - [address] [facility] [phone] [facility] [phone] Last office visit with prescribing clinician: Visit [...] documented as of this encounter Care Teams Junior Mechanical Engineer Relationship Specialty Start Date End Date Alfredo Marc PA-C [address] [place] [address] PCP - General Family Medicine 12/02/24 documented as of this encounter
--- OUTSIDE RECORDS SUMMARY | 2025-02-16 10:26 | XMS_ITS | Encounter Summary ---
[facility] Address [address] [place] [address] Care Team Providers Care Airport Duty Manager Name Role Phone Alfredo Marc PA-C Primary Care Provider Reason for Visit * Reason Comments Med Refill Encounter Details Date Type Department Care Team (Late st Contact Info) Description 11/26/2024 Refill [facility]ILY MEDICINE [address] [place] [address] Jelani Contreras PA [address] [place] [address] Perimenopausal Social History Tobacco Use [...] or training? Not on file Preferred Language Kiswahili 07/03/2024 PHQ-2 Answer Date Recorded Patient Health [...] 11/28/2024 9:27 AM Magen Ching MA * [place] Suicide Severity Rating Scale (Screener/Recent Self-Report) Question [...] states documented in this encounter Care Teams Airport Duty Manager Relationship Specialty Start Date End Date Alfredo Marc PA-C [facility] [place] [address] PCP - General Family Medicine 12/02/24 documented as of this encounter
--- OUTSIDE RECORDS SUMMARY | 2025-02-16 10:26 | XMS_ITS | Clinical Summary ---
Author Organization [facility] Address [address] [place] [address] Care Team Providers Care Garbage Collection Supervisor Name Role Phone Melissa Burks APRN Primary Care Provider [phone] Allergies Active Allergy Reactions Criticality Noted Date [...] Date Last Done Comments [facility]-Depression Screening 1975 [facility]-/Child/Adol SDOH Screenings 1976 [facility]- SDOH Screenings 1994 [facility]-Adult SDOH Screenings 1994 [facility]-Hepatitis B Vaccines (1 of 3 - 19+ 3-dose series) 1995 [facility]-Pap Smear 06/06/2013 06/06/2010 [facility]-Cervical Cancer Screening 06/06/2015 [facility]-HPV/Cotest 06/06/2015 06/06/2010 CT Colonography 2021 Colonoscopy 2021 FIT-DNA 2021 FIT 2021 FOBT 2021 Sigmoidoscopy 2021 [facility]-Colorectal Cancer Screening 2021 TCK-DOORD-36 Vaccine ( season) 2024 07/12/2020, 06/21/2020 [facility]-Influenza [...] Narrative [facility] - 06/15/2010 11:12 AM EST [facility] MR #: [id number] [facility] [place] [id number] (Age: 34) FW Collect Date: 06/06/2010 00:00 Receipt Date: 06/09/2010 12:51 Page 1 DEPARTMENT OF PATHOLOGY AND LABORATORY MEDICINE CYTOPATHOLOGY REPORT Email: [email or web address] [phone] ATTENDING MD/Practitioner: Sanya Dickens MD Service: OB Location: REG Reported: 06/15/2010 11:12 Collected: 06/06/2010 00:00 INTERPRETATION A. THIN PREP (CERVICAL/VAGINAL): NEGATIVE FOR INTRAEPITHELIAL LESION OR MALIGNANCY. SATISFACTORY FOR EVALUATION; ENDOCERVICAL/ TRANSFORMATION ZONE COMPONENT PRESENT. Slide scanned and imaged by [email or web address] ThinPrep Imaging System with manual review of [...] results is suggested (please call Microbiology at [phone] for results). CLINICAL INFORMATION: Menstrual History: : First Trimester Date of Last Menstrual Period: 04/25/10 Other Clinical Conditions: If ASCUS and > 24 years of age, HPV/DNA testing requested. SPECIMEN DESCRIPTION: A: THIN PREP (CERVICAL/VAGINAL) THIN PREP PROCESS CELLULAR ENHANCEMENT ICD: V76.2 CERVIX, SPECIAL SCREENING FOR MALIGNANT NEOPLASM F: A; RT IMAGE [id number] SNOMED CODES: A; [id number] In cases where a pathologist has signed out the report, the service has been rendered in part by a resident. The signing pathologist has performed and is responsible for the reported pathologic evaluation. Historical Provider LAB PATHOLOGY ORDERABLES Fin al Result SUNQUEST from Last 3 Months or Most Recently Relevant to Health Maintenance Care Teams Garbage Collection Supervisor Relationship Specialty Start Date End Date Melissa Burks, BHAVYA [address] [place] [address] PCP - General 10/29/20
--- OUTSIDE RECORDS SUMMARY | 2025-02-16 10:26 | XMS_ITS | Encounter Summary ---
[facility] Address [address] [place] [address] Care Team Providers Care Culinary Internship Name Role Phone Alfredo Marc PA-C Primary Care Provider Reason for Visit * Reason Onset Date Comments Med Refill 01/23/2023 Encounter Details Date Type Department Care Team (Late st Contact Info) Description 01/23/2023 Refill [facility]ILY MEDICINE [address] [place] [address] Huan Brown MD [address] [place], [place] [id number] Acute strain of neck muscle, initial encounter [...] Miscellaneous Notes * Telephone Encounter - Che Quevedo - 01/24/2023 9:30 AM EDT LVM THAT PT NEEDS AN APPT TO OBTAIN REFILLS. * Telephone Encounter - Flora Eastman RegSched Rep - 01/23/2023 3:43 PM EDT Caller: Nancy Pearce Relationship: Self Best call back number: [phone] Requested Prescriptions: Requested Prescriptions Pending Prescriptions Disp Refills celecoxib (CeleBREX) 200 MG capsule 180 capsule 0 Sig: Take 1 capsule by mouth 2 (Two) Times a Day. Patient needs to be seen for further refills-needs labs. Pharmacy where request should be sent: [facility] [id number] [place], [place] - [address] [facility] [phone] [facility] [phone] FX Last office visit with prescribing clinician: [...] documented as of this encounter Care Teams Culinary Internship Relationship Specialty Start Date End Date Alfredo Marc PA-C [address] [place] [address] PCP - General Family Medicine 12/02/24 documented as of this encounter
--- OUTSIDE RECORDS SUMMARY | 2025-02-16 10:26 | XMS_ITS | Encounter Summary ---
Author Organization [facility] Address [address] [place] [address] Care Team Providers Care Campaign Management Specialist Name Role Phone Melissa Burks APRN Primary Care Provider [phone] Encounter Details Date Type Department Care Team (Late st Contact Info) Description 02/08/2022 Abstract [facility] Audiology [address] [place] [address] Zeinab Myles, AuD [address] [place] [address] Social History Tobacco Use Types [...] on filedocumented in this encounter Care Teams Campaign Management Specialist Relationship Specialty Start Date End Date Melissa Burks APRN [address] [place] [address] PCP - General 10/29/20 documented as of this encounter
--- OUTSIDE RECORDS SUMMARY | 2025-02-16 10:26 | XMS_ITS | Clinical Summary ---
Author Organization [facility] Address [address] [address] Phone Care Team Providers Care Driver License Reviewing Officer Name Role Phone Unavailable Primary Care Provider [...] PLACEMENT Medical History Medical History Date Comments PAUMA (hard of hearing) Tobacco abuse Heartburn Family History Medical History Relation Name Comments Diabetes Father Hypertension Father Diabetes Mother Relation Name Status Comments Father Alive Mother Alive Social History Tobacco Use Types Packs/Day Years Used Date Smoking Tobacco: Every Day Cigarettes 1 35.7 Started: 06/18/1989 Smokeless Tobacco: Never Tobacco Cessation:Ready [...] Advance Directives For more information, please contact: [phone] * Full Code (Latest Code Status on File) Date Activated Date Inactivated Comments 01/05/2017 12:32 AM 01/08/2017 8:16 PM
--- OUTSIDE RECORDS SUMMARY | 2025-02-16 10:26 | XMS_ITS | Encounter Summary ---
Author Organization [facility] Address [address] [place] [address] Care Team Providers Care Recycling Attendant Name Role Phone Melissa Burks APRN Primary Care Provider [phone] Encounter Details Date Type Department Care Team (Late st Contact Info) Description 11/04/2020 Abstract [facility] Otolaryngology [address] [place] [address] Provider, External Social History Tobacco Use Types [...] on filedocumented in this encounter Care Teams Recycling Attendant Relationship Specialty Start Date End Date Melissa Burks APRN [address] [place] [address] PCP - General 10/29/20 documented as of this encounter
--- NOTE | 2025-02-16 10:28 | XR_ITS ---
PROCEDURE INFORMATION: Exam: XR Right Elbow Exam date and time: 02/16/2025 10:37 AM Age: 49 years old Clinical indication: Injury or trauma; Fall; Blunt trauma (contusions or hematomas); Elbow; Right; Additional info: Contusion after fall TECHNIQUE: Imaging protocol: Radiologic exam of the right elbow. Views: 3 or more views. Total images: 3 COMPARISON: No relevant prior studies available. FINDINGS: Bones/joints: No evidence of acute fracture or dislocation. Calcifications noted adjacent to the medial aspect of the distal humerus. Soft tissues: Soft tissues are within normal limits. IMPRESSION: No evidence of acute fracture or dislocation.
--- NOTE | 2025-02-16 10:28 | XR_ITS ---
PROCEDURE INFORMATION: Exam: XR Right Knee Exam date and time: 02/16/2025 10:28 AM Age: 49 years old Clinical indication: Injury or trauma; Fall; Blunt trauma; Knee; Right; Additional info: Fall, acute on chronic pain TECHNIQUE: Imaging protocol: Radiologic exam of the right knee. Views: 3 views. Total images: 3 COMPARISON: CR XR KNEE RT 3V 02/10/2025 12:29 PM FINDINGS: Bones/joints: There are mild degenerative changes of the knee joint, predominantly involving the medial joint compartment. No evidence of acute fracture or dislocation. Soft tissues: Soft tissues are within normal limits. Other findings: Radiopaque density overlies the posteromedial soft tissues. IMPRESSION: 1. There are mild degenerative changes of the knee joint, predominantly involving the medial joint compartment. 2. No evidence of acute fracture or dislocation.
--- NOTE | 2025-02-16 10:28 | XR_ITS ---
PROCEDURE INFORMATION: Exam: XR Lumbosacral Spine Exam date and time: 02/16/2025 10:27 AM Age: 49 years old Clinical indication: Injury or trauma; Fall; Blunt trauma (contusions or hematomas); Additional info: Fall, acute on chronic pain TECHNIQUE: Imaging protocol: Radiologic exam of the lumbosacral spine. Views: 2 or 3 views. Total images: 3 COMPARISON: No relevant prior studies available. FINDINGS: Bones/joints: The lumbar spine demonstrates mild degenerative changes at multiple levels. Disc space narrowing noted L4-L5 and L5-S1. Impression per. Vertebral heights are maintained. Soft tissues: Unremarkable. IMPRESSION: No acute findings.
--- NOTE | 2025-02-16 10:28 | XR_ITS ---
PROCEDURE INFORMATION: Exam: XR Right Ankle Exam date and time: 02/16/2025 10:30 AM Age: 49 years old Clinical indication: Injury or trauma; Fall; Blunt trauma; Ankle; Right; Additional info: Fall, lateral pain TECHNIQUE: Imaging protocol: Radiologic exam of the right ankle. Views: 3 or more views. Total images: 3 COMPARISON: CR Knee R 02/16/2025 10:28 AM FINDINGS: Bones/joints: Sclerotic density noted along the medial aspect of the distal tibia. No evidence of acute fracture or dislocation. Calcaneal spurs are present. Soft tissues: Soft tissues are within normal limits. IMPRESSION: No evidence of acute fracture or dislocation.
[2025-02-16 10:30] VITALS: BP 151/88; PULSE 68; O2SAT 97
[2025-02-16 10:31] VITALS: O2SAT 95
[2025-02-16] MEDS: TET/DIPHTH/PERT-ADULT 0.5ML SYRINGE 0.5 ML IM (11:10)
--- NOTE | 2025-02-16 11:21 | ED_ITS ---
<Statement entered by Addy Mancuso MD - 02/16/25 13:30> I was consulted by the DON, and we discussed the complexity of the problems being addressed. I approve the treatment and management plan for this patient's care in the emergency department, thus performing a substantive portion of the medical decision making. Addy Mancuso MD Discharge Plan Disposition Patient Disposition: Home, Self-Care Condition: Good Prescriptions Prescriptions: No Action ibuprofen 800 mg Tablet 800 mg PO Q8H PRN (Reason: Pain) methocarbamol 750 mg Tablet 750 mg PO HS promethazine-DM 6.25-15 mg/5 mL syrup 5 ml PO Q6H PRN (Reason: cough) Qty: 118 0RF methylprednisolone [Medrol (Edison)] 4 mg tablets,dose pack See Rx Instructions .Route .COMPLEX 6 Days Qty: 21 0RF Rx Instructions: taper pack; guaifenesin [Mucinex] 600 mg tablet extended release 12hr 1,200 mg PO BID PRN (Reason: cough) Qty: 20 0RF albuterol sulfate 90 mcg/actuation HFA aerosol inhaler 2 puff inhalation Q6H PRN (Reason: shortness of breath or wheezing) Qty: 8.5 0RF azithromycin [Zithromax Z-Edison] 250 mg tablet See Rx Instructions .ROUTE .COMPLEX 5 Days Qty: 6 0RF Rx Instructions: For 250 mg dose pack: take 500 mg today (day 1), then 250 mg for 4 days (days 2-5) venlafaxine 75 mg capsule,extended release 24hr 75 mg PO DAILY Referrals Follow up/Referrals: Richardson Silver DO [Staff Physician, Orthopedics] - See instructions Bhavya Melendrez MD [Primary Care Provider, Medical] - See instructions Activity Restrictions/Add. Instructions Additional Instructions/Restrictions: You were seen for back and knee pain. Please follow up with you orthopedist. Continue your current medications. Return to ER for increased pain or swelling. Clinical Impressions Clinical Impression: Abrasion of knee, Back pain Instructions Patient Instructions: DI for Low Back Pain, DI for Abrasion Print Language Print Language: Guyanese Discharge ED Provider: Addy Mancuso General Adult [facility] General Chief complaint: Fall Stated complaint: AO Fall 02/16/2025 back pain Time Seen by Provider: 09/01/25 10:21 Mode of Arrival: Ambulatory Source of Information: Patient Description of Symptoms (Recalled from ER Triage Doc. by RN): pt presents to the er for a fall about a hour ago, states she tripped over her dog and tumbled down to the ground, denies loc, denies hitting head, denies taking blood thinners, states she scrapped her R knee and bilateral elbows, reports pain 8/10 in back and 6/10 in RLE, states she had back surgery in june of this year, states pain is constant after fall History of Present Illness HPI narrative: Patient presents after a fall. She reports that she was walking down an incline and her dog ran in front of her tripping her and causing her to fall. She denies any head injury or loss of consciousness. She reports pain in her right knee with an abrasion, right elbow pain, right lateral ankle pain as well as back pain. She reports that she does have some chronic back pain and right knee pain. She has full range of motion of her extremities. She did take her Celebrex this morning. Denies any fevers or vomiting. Denies any bowel or bladder incontinence or saddle anesthesias. Unsure of last tetanus. MD complaint: fall Onset (ago): hour(s) (1) Location: back, right, upper extremity and lower extremity Radiation: non-radiation Severity: moderate Consistency: constant Relieving factors: none Exacerbating factors: none Associated symptoms: denies other symptoms Related Data Home Medications ?Medication ?Instructions ?Recorded ?Confirmed venlafaxine 75 mg capsule,extended 75 mg PO DAILY 09/1702/10/25 release 24 hr ibuprofen 800 mg tablet 800 mg PO Q8H PRN Pain 05/1402/10/25 methocarbamol 750 mg tablet 750 mg PO HS 05/14/2401/17 Previous Rx's ?Medication ?Instructions ?Recorded albuterol sulfate 90 mcg/actuation 2 puff inhalation Q 6H PRN 05/14/24 aerosol inhaler shortness of breath or wheez ing #8.5 grams azithromycin 250 mg tablet See Rx Instructions PO .COM PLEX 5 05/14/24 (Zithromax Z-Edison) days #6 tabs guaifenesin 600 mg tablet, 1,200 mg (2 x 600 mg) PO BI D PRN 05/14/24 extended release 12 hr (Mucinex) cough #20 tabs methylprednisolone 4 mg tablets in See Rx Instructions .Route 05/14/24 a dose pack (Medrol (Edison)) .COMPLEX 6 days #21 tabs promethazine-DM 6.25 mg-15 mg/5 mL 5 ml PO Q6H PRN cou gh #118 mL 05/14/24 oral syrup Allergies Allergy/AdvReac Type Severity Reaction Status Date / Time No Known Allergies Allergy Verified 02/10/25 13:23 [facility] [place] Disclaimer: The information contained in this section may have been updated after the patient was seen, as this information can be updated by other users. Medical History Impacted cerumen, left ear Acute left otitis media Depression Anxiety Urinary tract infection Surgical History History of ear surgery History of tympanostomy tube placement Social History Smoking Status: Current every day smoker tobacco type: cigarettes packs per day: 1 alcohol intake: never current occupational status: unemployed Travel in the last 8 weeks?: None Have you lived/traveled outside [place] in past 30 days?: No Contact w/someone who lives/traveled outside [place] past 30 days?: No Exposure to someone with infectious disease in past 14 days?: No Do you have a fever (greater than 100.4 F or 38 C)?: No Have you tested positive for COVID-19?: No Exposed to someone with COVID-19 in past 14 days?: No Do you have a sore throat?: No Do you have a cough?: No Do you have any weakness?: No Do you have any diarrhea?: No Are you experiencing any unusual bleeding?: No Do you have any muscle aches/pain?: No Do you have any abdominal pain?: No Are you experiencing loss of taste or smell?: No Other Medical History Have you received the Pneumonia Vaccine: No ROS Obtained: Yes Systems reviewed as appropriate & no additional complaints except as documented Physical Exam General General appearance: alert and in no apparent distress Head Head exam: atraumatic and normocephalic Eye Eye exam: Present normal appearance and EOMI Chest Chest inspection: Present symmetric chest wall rise Respiratory Respiratory exam: Present normal lung sounds bilaterally; Absent wheezes or stridor Cardiovascular Cardiovascular exam: Present regular rate and normal rhythm; Absent systolic murmur Extremities Exam Extremities exam: Present full ROM and other (Right knee anterior abrasion with tenderness, stable, FROM/ N/V intact. Right elbow mild erythema, no edema, FROM, N/V intact, mild TTP over olecranon. Right ankle mild lateral TTP, stable, FROM, N/V intact) Back Exam Back exam: Present normal inspection and tenderness (generalized lumbar tenderness ) Neurological Exam Neurological exam: Present alert and oriented X3 Psychiatric Psychiatric exam: Present normal affect and normal mood Skin Skin exam: Present warm, dry and intact Medical Decision Making Medical Records Screening: Per USPSTF and CDC recommendations, given the prevalence of disease in our region, it is our hospital?s policy to screen for HIV and viral Hepatitis for all patients aged 18 and over and those with ongoing risk factors. Nick Inquiry Pt receiving controlled substance: No Vital Signs: 02/16/25 10:21 02/16/25 10:24 02/16/25 10:30 Temperature 98.2 F Temperature Source Oral Pulse Rate 99 H 68 Pulse Rate [Left Radial] 100 H Respiratory Rate 18 Blood Pressure 155/100 H 151/88 H Blood Pressure [Right Arm] 155/100 H Blood Pressure Mean [Right Arm] 118 Blood Pressure Source [Right Arm] Automatic Cuff Blood Pressure Position [Right Arm] Sitting 02 Sat by Pulse Oximetry 97 95 97 Oxygen Delivery Method Room Air 02/16/25 10:31 02/16/25 11:31 Temperature 98.1 F Temperature Source Pulse Rate 87 Pulse Rate [Left Radial] Respiratory Rate 20 Blood Pressure 128/88 Blood Pressure [Right Arm] Blood Pressure Mean [Right Arm] Blood Pressure Source [Right Arm] Blood Pressure Position [Right Arm] 02 Sat by Pulse Oximetry 95 Oxygen Delivery Method Room Air Room Air Orders (Tests/Meds): ED MEDICATIONS Discontinued Medications Generic Name Dose Route Start Last Admin Trade Name Freq PRN Reason Stop Dose Admin Tetanus/Reduced Diphtheria/Acell Pertussis 0.5 ml 02/16/25 10:28 02/16/25 11:10 Tet/Diphth/Pert-Adult 0.5ml Syringe IM 02/16/25 10:29 0.5 ml .ONCE ONE Administration ORDERS Category Date Time Status Ankle XR -Right minimum 3 Views [XR ankle RT min 3V] Exams 02/16/25 10:28 Completed Stat Elbow XR right minimum 3 views [XR elbow RT min 3V] Exams 02/16/25 10:28 Completed Stat Knee XR right 3 views [XR knee RT 3V] Stat Exams 02/16/25 10:28 Completed Lumbar spine XR 2-3 views [XR lumbar spine 2-3V] Stat Exams 02/16/25 10:28 Completed Medical Decision Narrative: In summary patient is a 49-year-old who presents the emergency department for evaluation of fall. Patient is mildly hypertensive upon arrival, afebrile. Abrasion to right knee, mild tenderness of back, elbow, ankle. Differential diagnosis includes fracture, sprain, contusion. Initial workup will be conducted with x-ray of lumbar spine, right knee, right ankle, right elbow. X- rays are negative for any acute fracture. Upon repeat evaluation patient is resting comfortable. Given this patient is appropriate for discharge home at this time with follow-up with her orthopedist.. Critical Care Critical Care Time Critical Care Time: No
[2025-02-16 11:31] VITALS: BP 128/88; PULSE 87; RESP 20; TEMP 36.7; O2SAT 98
== END 2025-02-16 11:32 | disposition home or self-care (01) ==
PROVIDERS: Emergency Provider Student in an Organized Health Care Education/Training Program; PCP Family Medicine
DX: S80.211A Abrasion, right knee, initial encounter (principal); M54.50 Low back pain, unspecified; F17.210 Nicotine dependence, cigarettes, uncomplicated; W01.10XA Fall on same level from slipping, tripping and stumbling with subsequent striking against unspecified object, initial encounter
CPT/HCPCS: 72100; 73080; 73562; 73610; 90471; 90715; 99284; 99285